=== PATIENT | male | born 1945 | race Caucasian/White ===

== ENCOUNTER 2024-04-24 10:33 | Outpatient (REF) | payer MEDICARE, SELFPAY ==
[2024-04-24 13:29] LABS: Basophils Absolute Auto 0.1 X10*3/uL (0.0-0.2); Basophils Percent Auto 1.2 % (0-2); Eosinophils Absolute Auto 0.1 X10*3/uL (0.0-0.4); Eosinophils Percent Auto 0.7 % (0-4); Hematocrit 48.7 % (42.0-52.0); Hemoglobin 16.2 g/dl (14.0-18.0); Imm Gran Abs Auto 0.02 X10*3/uL (0.00-0.03); Imm Gran Pct Auto 0.3 % (0.0-0.4); Lymphocytes Absolute Auto 1.5 X10*3/uL (1.2-4.9); Lymphocytes Percent Auto 21.2 % (20-40); MANUAL DIFF FLAG SCAN; Mean Corpuscular HGB Conc 33.3 g/dl (31.0-36.0); Mean Corpuscular Hemoglobin 33.5 pg (27.0-33.0); Mean Corpuscular Volume 100.6 fL (80.0-98.0); Monocytes Absolute Auto 0.6 X10*3/uL (0.1-1.2); Monocytes Percent Auto 7.7 % (2-11); PLT CLUMP 1; Red Blood Count 4.84 X10*6/uL (4.60-5.80); Red Cell Distribution Width 12.3 % (11.0-16.0); SCAN SMEAR FLAG 1
[2024-04-24 13:37] LABS: Estimated Average Glucose 100 mg/dL; Hemoglobin A1c % 5.1 % (<6.0)
[2024-04-24 13:49] LABS: Mean Platelet Volume 11.9 fL (9.4-12.4); White Blood Count 7.3 X10*3/uL (4.8-10.8)
[2024-04-24 13:51] LABS: Alanine Aminotransferase 19 U/L (0-40); Albumin Level 4.8 g/dL (3.5-5.0); Alkaline Phosphatase 94 U/L (39-117); Anion Gap 18 (12-20); Aspartate Amino Transferase 22 U/L (5-37); Bilirubin Total 0.7 mg/dL (0.0-1.0); Blood Urea Nitrogen 19 mg/dL (9-16); Calcium 10.7 mg/dL (8.4-10.2); Carbon Dioxide 23 mmol/L (22-29); Chloride 104 mmol/L (96-108); Cholesterol 138 mg/dL (<200); Estimated Glomerular Filt Rate 53; Glucose Random 90 mg/dL (60-115); HDL Cholesterol 48 mg/dL (>40); LDL Cholesterol Calculated 80 mg/dL (<100); Potassium 4.1 mmol/L (3.3-5.1); Sodium 141 mmol/L (135-145); Total Protein 7.7 g/dL (6.5-8.0); Triglycerides 52 mg/dL (<150)
[2024-04-24 13:55] LABS: Neutrophils Percent Auto 68.9 % (45-73)
[2024-04-24 13:56] LABS: Platelet Count 162 X10*3/uL (160-400); SLIDE REVIEW VERIFIED
[2024-04-24 14:07] LABS: Prostate Specific Antigen 10.88 ng/mL (<0.05-4.0)
== END 2024-04-24 10:34 | disposition home or self-care (01) ==
LOC: HO.MANLDS 10:33
PROVIDERS: Visit Provider Physician Assistant
DX: E78.5 Hyperlipidemia, unspecified (principal); R97.8 Other abnormal tumor markers; L97.929 Non-pressure chronic ulcer of unspecified part of left lower leg with unspecified severity; Z12.5 Encounter for screening for malignant neoplasm of prostate; Z13.1 Encounter for screening for diabetes mellitus
CPT/HCPCS: 36415; 80053; 80061; 83036; 84153; 85025

== ENCOUNTER 2024-05-02 10:02 | Outpatient (REF) | payer MEDICARE, SELFPAY ==
[2024-05-02 13:31] LABS: MANUAL DIFF FLAG NO
[2024-05-02 14:13] LABS: Basophils Absolute Auto 0.1 X10*3/uL (0.0-0.2); Basophils Percent Auto 1.6 % (0-2); Eosinophils Absolute Auto 0.1 X10*3/uL (0.0-0.4); Eosinophils Percent Auto 0.9 % (0-4); Hematocrit 47.8 % (42.0-52.0); Hemoglobin 15.9 g/dl (14.0-18.0); Imm Gran Abs Auto 0.02 X10*3/uL (0.00-0.03); Imm Gran Pct Auto 0.4 % (0.0-0.4); Lymphocytes Absolute Auto 1.4 X10*3/uL (1.2-4.9); Lymphocytes Percent Auto 25.6 % (20-40); Mean Corpuscular HGB Conc 33.3 g/dl (31.0-36.0); Mean Corpuscular Hemoglobin 33.1 pg (27.0-33.0); Mean Corpuscular Volume 99.6 fL (80.0-98.0); Mean Platelet Volume 10.6 fL (9.4-12.4); Monocytes Absolute Auto 0.4 X10*3/uL (0.1-1.2); Monocytes Percent Auto 7.4 % (2-11); Neutrophils Absolute Auto 3.6 x10*3/uL (2.0-8.3); Neutrophils Percent Auto 64.1 % (45-73); Platelet Count 213 X10*3/uL (160-400); Red Cell Distribution Width 12.2 % (11.0-16.0); White Blood Count 5.5 X10*3/uL (4.8-10.8)
[2024-05-02 14:47] LABS: Iron 109 mcg/dL (45-160); Percent Iron Saturation 49 % (15-50); Total Iron Binding Capacity 224 mcg/dL (228-428); Unsaturated Iron Binding 115 ug/dL
[2024-05-02 14:52] LABS: Folate 10.9 ng/mL (> or = 4.0); Vitamin B12 446 pg/mL (200-900)
[2024-05-02 14:55] LABS: Ferritin 263 ng/mL (20-250)
[2024-05-07 10:13] LABS: Methylmalonic Acid 131 nmol/L (69-390)
== END 2024-05-02 10:03 | disposition home or self-care (01) ==
LOC: HO.MANLDS 10:02
PROVIDERS: Visit Provider Physician Assistant
DX: D75.89 Other specified diseases of blood and blood-forming organs (principal); D75.839 Thrombocytosis, unspecified
CPT/HCPCS: 36415; 82607; 82728; 82746; 83540; 83921; 85025

== ENCOUNTER 2025-04-19 13:47 | Outpatient (AMB) | payer MEDICARE, SELFPAY ==
--- OUTSIDE RECORDS SUMMARY | 2024-10-16 07:22 | XMS_ITS | Continuity of Care Document ---
Author Name [facility] Organization [facility] Care Team Providers Care Supervisor Warping Department Name Role Phone [facility] Unavailable Unavailable Encounters Combined list of: 1) Encounters from [facility] facilities going backup to the last 18 months, not all [facility] inpatient encounters are included; 2) Encounters from the [facility] facilities going backup to 280 months. Location Location Details Encounter Type Encounter Number Reason For Visit Attending Provider ADM Date DC Date Status Disposition Source [facility] Outpatient Encounter [id number] 10/16 [facility]
--- NOTE | 2025-04-19 13:56 | A.OFFVIS_ITS ---
Intake Visit Reasons: inguinal hernia Intake Note: Pt states, I'm here for a hernia. no pain, swelling, getting bigger, had it for 20 years Allergies sulfamethoxazole (From Bactrim) Allergy (Severe, Verified 04/19/25 13:58) hives trimethoprim (From Bactrim) Allergy (Severe, Verified 04/19/25 13:58) hives Medication List - Last Reconciled 04/19/25 by Donovan Whatley RN aspirin 81 mg PO DAILY coenzyme Q10 (Ultra CoQ10) 75 mg PO DAILY magnesium 200 mg PO DAILY tamsulosin 0.4 mg PO DAILY HPI HPI inguinal hernia: Details: 79-year-old male referred for right inguinal hernia. He says that he has had this reducible mass on his right groin for more than 20 years. However, he says that this has been getting bigger has been causing more pain and discomfort. He is still able to reduce this by lying down and pushing this back in but he says that this ?pops out? more frequently now and causes more pain. He denies GI complaints He is still very active and still plays golf regularly. He says he has only medical problem is that he has BPH and is on tamsulosin. [facility] Medical History Reducible right inguinal hernia Surgical History History of tonsillectomy Review of Systems Const Denies chills and Denies fever(s) Card Denies chest pain, Denies dyspnea and Denies dyspnea on exertion Resp Denies cough, Denies dyspnea and Denies dyspnea on exertion GI Denies hematochezia and Denies change in bowel habits Denies hematuria and Denies difficulty urinating Musc Denies back pain and Denies limited range of motion Neuro Denies focal weakness and Denies convulsions Psych Denies depression and Denies mood swings Physical Exam Const General: comfortable and no acute distress Orientation/consciousness: patient oriented x3 Neck Neck: Yes no lymphadenopathy Resp Auscultation: clear to auscultation bilaterally Cardio Rhythm: regular rhythm GI Other: Large, reducible right inguinal hernia Palpation (GI): Soft to palpation, nontender and no guarding Neuro General: patient oriented x3 Assessment & Plan Assessment & Plan (1) Reducible right inguinal hernia: Code(s): K40.90 - Unilateral inguinal hernia, without obstruction or gangrene, not specified as recurrent Category: Medical Plan He has this large right inguinal hernia which is actually reducible. This has been becoming more and more uncomfortable to him. He now wants to proceed with repair. I explained to him the technique of repair of the right inguinal hernia with mesh. I reviewed the risks including but not limited to bleeding, infections, injury to other organs, poor healing, recurrence, as well as the benefits and alternatives. I also reviewed with him what to expect postoperatively. Coding Level of Care Code New Pt Level 3 (91617) Diagnoses Reducible right inguinal hernia K40.90
--- OUTSIDE RECORDS SUMMARY | 2025-04-19 14:30 | XMS_ITS | Data Portability ---
Author Organization [facility], Telehealth Patient Home Address [address] [place] [address] Assessment Encounter Date Assessment Date Assessment LastModified by Organization Details LastModified Time 10/27/2021 10/27/2021 [id number] [place] [id number] (AFFILIATE MARKETING COORDINATOR) : MDM LOW MUST MEET 2 OF 3 ELEMENTS: PROBLEMS, DATA OR RISK ELEMENT 1: PROBLEMS ADDRESSED (LOW): 2 OR MORE SELF-LIMITED OR MINOR PROBLEMS OR 1 STABLE CHRONIC ILLNESS OR 1 ACUTE UNCOMPLICATED ILLNESS OR INJURY ELEMENT 2: DATA TO BE REVISED AND ANALYZED (LOW) MUST MEET 1 OF 2 CATEGORIES: CATEGORY 1. REVIEW OF PRIOR EXTERNAL NOTES/RESULTS, ORDERING OF TEST(S) CATEGORY 2. ASSESSMENT REQUIRING INDEPENDENT HISTORIAN(S) INCLUDE WHO THE HISTORIAN IS AND RELATION TO PT AND WHY PT IS UNABLE TO GIVE COMPLETE HISTORY ELEMENT 3: RISK (LOW) RISK OF COMPLICATIONS AND/OR MORBIDITY OR MORTALITY OF PATIENT MANAGEMENT PROVIDER MUST THOROUGHLY DOCUMENT ALL OF THE ELEMENTS COVERED PROVIDER MUST THOROUGHLY DOCUMENT EACH ELEMENT THAT IS COVERED Not available 10/27/2021 14:01:33 01/29/2025 01/29/2025 [id number] [place] [id number] (AFFILIATE MARKETING COORDINATOR) MDM HIGH MUST MEET 2 OUT OF 3 ELEMENTS: PROBLEMS, DATA OR RISK ELEMENT 1: PROBLEMS 1 OR MORE CHRONIC ILLNESS W/SEVERE EXACERBATION, PROGRESSION MAY REQUIRE HOSPITAL LEVEL CARE OR 1 ACUTE OR CHRONIC ILLNESS OR INJURY THAT POSES A THREAT TO LIFE OR BODILY FUNCTION ELEMENT 2: DATA: MUST MEET 2 OF 3 CATEGORIES CATEGORY 1 REVIEW OF PRIOR EXTERNAL NOTES REVIEW OF THE RESULTS ORDERING OF EACH TEST ASSESSMENT REQUIRING INDEPENDENT HISTORIAN(S) CATEGORY 2: INDEPENDENT INTERPRETATION OF TESTS BY ANOTHER PROVIDER/SPECIALI ST CATEGORY 3: DISCUSSION OF MGT OR TEST INTERPRETATION W/EXTERNAL PHYSICIAN/SPECIAL IST ELEMENT 3: RISK HIGH RISK OF MORBIDITY FROM ADDITIONAL DIAGNOSTIC TESTING OR TREATMENT PROVIDER MUST THOROUGHLY DOCUMENT EACH ELEMENT THAT IS COVERED The patient presented to their appointment today for multiple concerns requiring moderate to high-level decision making and took over 40-45 minutes for an adequate and appropriate history, exam, assessment and treatment plan. This appointment was done with an established patient. Not available 01/29/2025 15:10:59 Plan of Treatment Reminders Order Date Submit Date Provider Last Modified By Organization Details Last Modified Time Details Appointments None recorded. Lab CMP, serum or plasma 2024 025 [facility], [address] [place] [address], [id number], 5 15:10:33 lipid panel, blood 2024 025 [facility], [address] [place] [address], [address], 5 15:10:33 CBC w/ auto diff 2024 025 [facility], [address] [place] [address], [address], 5 15:10:33 PSA, serum or plasma 2024 025 [facility], [address] [place] [address], [address], 5 15:10:33 PSA, serum or plasma 2023 024 [facility], [address] [place] [address], [address], 4 11:45:28 lipid panel, serum 2023 024 [facility], [address] [place] [address], [address], 4 11:45:28 CMP, serum or plasma 2023 024 [facility], [address] [place] [address], [address], 4 11:45:27 CBC w/ auto diff 2023 024 [facility], [address] [place] [address], [place], [address], 4 11:45:29 hemoglobin A1c, QN, blood 2023 024 [facility], [address] [place] [address], [place], [address], 4 11:45:28 culture, wound 2023 024 [facility], [address] [place] [address], [place], [address], 4 10:45:04 PSA, serum or plasma 2021 022 [facility], [place], [address], 2 13:50:23 CMP, serum or plasma 2021 022 [facility], [place], [address], 2 13:49:31 lipid panel, serum 2021 022 [facility], [place], [address], 2 14:05:12 Referral general surgeon referral 2024 025 raymundo Amor MD, [address] [place] [address] [place], [address], 5 08:44:39 Procedures None recorded. Surgeries None recorded. Imaging XR, lumbosacra l spine, 2 or 3 view 2019 020 [facility], [address] [place] [address], [place], [address], 0 09:16:47 Medication Orders doxycyclin e hyclate 100 mg capsule 2024 025 [facility], [address] [place] [address], [address], 5 15:05:14 tamsulosin 0.4 mg capsule [address] [facility] [address] [facility], [address] [place] [address], [address], 5 15:08:54 Bactrim DS 800 mg-160 mg tablet 2023 024 [facility], [address] [place] [address], [address], 4 14:59:30 gabapentin 300 mg capsule [address] [facility], [address] [place] [address], [address], 0 10:17:49 naproxen 500 mg tablet [address] [facility], [address] [place] [address], [address], 0 10:17:54 Patient TargetsNo targets recorded. Patient Instructions Encounter Date Encounter Id Patient Instructions Last Modified By Organization Details Last Modified Time 10/27/2021 [id number] transient ischemic attack: care instructions Not available 10/27/2021 13:59:40 01/29/2025 [id number] inguinal hernia: care instructions Not available 01/29/2025 15:03:40 Reason for Referral General Surgeon Referral for Right inguinal hernia right inguinal hernia Referring Physician: Kenneth Blanton, Internal Medicine, Encounter Date: 01/29/2025 Results Created Date Observation Date Name Description Value Unit Range Abnormal Flag Note LastModifiedBy Organization Detail LastModifiedTime 01/05/20 20 01/01/2020 XR, lumbo sacra l spine , 2 or 3 view No observ ation record ed. [facility] [address] [place], [address], 01/05/2020 11:42:43 Result Notes None recorded. Problems Name Problem SNOMED Code Status Onset Date Resolution Date Notes Provider Name and Address Organization Details Recorded Time Transient cerebral ischemia 852852493 Active 2018 Kenneth Blanton DO [address] [place] [address], [address], [facility] 9 09:34:12 Prostate specific antigen outside reference range 494562766 Active 2018 Kenneth Blanton DO [address] [place] [address], [address], [facility] 9 09:34:27 Celluliti s of lower leg 997283932 Active 2023 DUSTIN CHÁVEZ [address] [place] [address], [address], [facility] 4 14:57:00 Hyperlipi demia 69705135 Active 2023 DUSTIN CHÁVEZ [address] [place] [address], [address], [facility] 4 14:58:20 Ulcer of lower extremity 29476336 Active 2023 DUSTIN CHÁVEZ [address] [place] [address], [address], [facility] 4 14:58:48 Ulcer of lower extremity 25711988 Active 2023 DUSTIN CHÁVEZ [address] [place] [address], [address], [facility] 4 14:59:27 Macrocyto sis 749285929 Active 2023 DUSTIN CHÁVEZ [address] [place] [address], [address], [facility] 4 16:30:38 Thrombocy tosis 8617699 Active 2023 DUSTIN CHÁVEZ [address] [place] [address], [address], [facility] 4 16:31:14 Drug therapy finding 374766838 Active 2024 Kenneth Blanton, [address], [address], [facility] 5 14:58:16 Right inguinal hernia 275000661 Active 2024 Kenneth Blanton [address], [address], [facility] 5 15:02:49 Nocturia due to benign prostatic hypertrop hy 147083590727 1 Active 2024 Kenneth Blanton [address], [address], [facility] 5 15:08:11 Chronic constipat ion 887579865 Active 2024 Kenneth Blanton [address], [address], [facility] 5 15:09:08 Problem Notes None recorded. Procedures Surgical History Date Name Laterality Status Provider Name and Address Organization Details Recorded Time 4 WOUND CARE completed DUSTIN CHÁVEZ [address] [place] [address], [address], [facility] 04/21/2024 15:04:23 Imaging Results None recorded. Procedure Notes None recorded. Medical Equipment None Reported. Allergies Allergen ID Allergen Name Allergen Category Reaction Reaction Severity Criticality Documentation Date Start Date Code Code System Note Provider Name and Address Organization Details Recorded Time 8699 Substance with sulfonami de structure and antibacte rial mechanism of action (substanc e) medicatio n hives Not available Not available 10/30/2024 36310 8003 SNOMED Lazaro saavedra [facility] 5 11:55:15 8700 Bactrim medicatio n hives Not available Not available 10/30/2024 60357 9 RxNorm Lazaro saavedra [facility] 5 11:55:26 8953 atorvasta tin medicatio n Not available Not available unabletoasse 01/29/2025 17842 RxNorm edior tiki Cooper JesusBrent Blanton, [address] [place], [address], [facility] 5 14:59:44 Medications Name Sig Start Date Stop Date Status Note LastModified by Organization Details LastModified Time atorvastati n 80 mg tablet Take 1 tablet every day by oral route. 03/17 completed Not Available Not Available Not Available doxycycline hyclate 100 mg capsule TAKE 1 CAPSULE BY MOUTH TWICE DAILY FOR 10 DAYS active Not Available Not Available No t Available atorvastati n 10 mg tablet TAKE 1 TABLET BY MOUTH ONCE DAILY active Not Available Not Available No t Available aspirin 325 mg tablet Take 1 tablet every day by oral route. 03/17 completed Not Available Not Available Not Available ciprofloxac in 500 mg tablet Take 1 tablet every 12 hours by oral route for 10 days. 03/17 completed Not Available Not Available Not Available sulfamethox azole 800 mg-trimetho prim 160 mg tablet TAKE 1 TABLET BY MOUTH EVERY 12 HOURS FOR 7 DAYS active Not Available Not Available No t Available tamsulosin 0.4 mg capsule TAKE 1 CAPSULE BY MOUTH ONCE DAILY active Not Available Not Available No t Available gabapentin 300 mg capsule TAKE 1 CAPSULE BY MOUTH ONCE DAILY AT BEDTIME 10/02 completed Not Available Not Available Not Available SB Low Dose ASA EC 81 mg tablet,elvin yed release Take 1 tablet every day by oral route. active Not Available Not Available No t Available mupirocin 2 % topical ointment APPLY OINTMENT TOPICALLY TO SURGICAL SITE TWICE DAILY FOR 14 DAYS active Not Available Not Available No t Available naproxen 500 mg tablet TAKE 1 TABLET BY MOUTH TWICE DAILY 10/02 completed Not Available Not Available Not Available Vitals Date Recorded Body height Body mass index (BMI) Body weight Heart rate Oxygen saturation Oxygen saturation in Arterial blood by Pulse oximetry Systolic And Diastolic Provider Name and Address Organization Details Last Updated DateTime 0 177.17 cm 22.7 kg/m2 71450 g 84 /min 99 % 99 % 130/74 mm[Hg] DUSTIN CHÁVEZ [address] [place], [address] 0 10:43:49 Date Recorded Body height Body mass index (BMI) Body weight Heart rate Oxygen saturation Oxygen saturation in Arterial blood by Pulse oximetry Systolic And Diastolic Provider Name and Address Organization Details Last Updated DateTime 5 177.8 cm 22.5 kg/m2 97492 g 80 /min 98 % 98 % 140/80 mm[Hg] Neisha Cardonamond [facility] 5 14:40:30 Date Recorded Body height Body mass index (BMI) Body weight Heart rate Oxygen saturation Oxygen saturation in Arterial blood by Pulse oximetry Systolic And Diastolic Provider Name and Address Organization Details Last Updated DateTime 4 177.8 cm 22.5 kg/m2 52878 g 66 /min 98 % 98 % 120/80 mm[Hg] Lazaro [facility] 4 14:42:01 Social History Question Answer Notes LastModified by Organizat ion Details LastModified Time Tobacco Smoking Status Never Smoker [facility] 01/10/2019 11:39:14 What Was The Date Of Your Most Recent Tobacco Screening? 01/29/2025 [email or web address] Information not available 01/29/2025 Sex: Unknown Functional Status None recorded. Mental Status None recorded. Family History Nothing Reported. Medical History No medical history recorded. 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 and is now manifestin g symptoms with a left visual field cut ct and mri will be forwarded in ER report Kenneth Blanton [facility] [address] [facility],[place] [address] 02/17/2019 13:19:52 02/17/2019 14:46:26 Benign prostatic hyperplasia 160248345 N40.1 [id number] Kenneth Blanton DO [facility] [address] [facility],[place] [address] 03/17/2019 09:06:38 03/17/2019 11:21:10 Transient cerebral ischemia 759072817 G45.9 will cont with asa at this time neuro reportedly stated no need for procedure await full report cont statin but neuro lowered the dose will call pt with approp dose when we receive the actual consult report Prostate s pecific antigen outside reference range 164696006 R97.8 will be seeing urology in the next week or so psa is still elevated at 9.8 will send all labto urol today [id number] Kenneth Blanton [facility] [address] [facility], [place] [address] 05/08/2019 13:59:13 05/08/2019 16:08:04 Prostate specific antigen above reference range 773226597 R97.20 will try to order an mri and use this as pt is extremely reluctant to get a bx [id number] Kenneth Blanton DO [facility] [address], [place] [address] 07/03/2019 13:51:50 07/03/2019 16:29:18 Prostate specific antigen outside reference range 009950830 R97.8 will refer urology for a new opinion will send all lab to urol today Left inguinal hernia 236 191895 K40.90 will address after prostate stuff done [id number] Kenneth Blanton [facility] [address] [facility],[place] [address] 12/29/2019 10:36:34 12/29/2019 14:45:28 Right side sciatica 0240108511 56708 M54.31 the pt had a prior hx of sciatica due to chronic low back pain will get imaging done Meralgia p aresthetica of right leg 0844750995 82705 G57.11 constant numbness for the past day with right upper thigh will treat and image [id number] Kenneth Blanton [facility] [address] [facility],[place] [address] 10/02/2020 09:46:47 10/02/2020 10:48:58 Transient cerebral ischemia 059093401 G45.9 will cont with asa at this time neuro reportedly stated no need for procedure await full report cont statin but vascular lowered the dose will call pt with approp dose when we receive the actual consult report Prostate s pecific antigen outside reference range 544461747 R97.8 psa is higher but remains stable at 9.2 was 10.6 followe d by urology [id number] Kenneth Blanton [facility] [address] [facility],[place] [address] 10/27/2021 08:17:16 10/28/2021 15:28:34 Transient cerebral ischemia 898124657 G45.9 will cont with asa at this time neuro reportedly stated no need for procedure await full report cont statin but vascular lowered the dose will call pt with approp dose when we receive the actual consult report Prostate s pecific antigen outside reference range 551582372 R97.8 psa is higher but remains stable at 9.2 was 10.6 followe d by urology [id number] [facility] [address] [facility],[place] [address] 04/21/2024 14:28:14 04/21/2024 16:32:33 Depression screening 221958359 Z13.31 negative Cellulitis of lower leg 464246193 L03.116 start on bactrim for the next 7 days Hyperlipidemia 97543511 E78.5 set up with repeat blood work Prostate s pecific antigen outside reference range 125112301 R97.8 needs recheck Ulcer of l ower extremity 65598874 L97.929 no specific cause for the ulcer, will check a1c r/o poorly controlled new onset diabetes [id number] Kenneth Blanton [facility] [address] [facility],[place] [address] 01/29/2025 14:31:24 01/29/2025 15:07:13 Transient cerebral ischemia 316312311 G45.9 has been stable will cont with asa at this time neuro reportedly stated no need for procedure await full report cont statin but vascular lowered the dose will call pt with approp dose when we receive the actual consult report Hyperlipidemia 94954463 E78.5 now having signif effects from atorvastat including memory Depression screening 171 061822 Z13.31 neg Drug therapy finding 309 802597 T88.7XXA stop the atorvastat in will see how he does Right inguinal hernia 23 1842660 K40.90 will refer to surg Infection of tick bite 620939863 W57.XXXA Nocturia d ue to benign prostatic hypertrophy 2203605022 101 N40.1 R35.1 Chronic constipation 236 571376 K59.09 long discussion will have him take psyillium husk and water and see how he does Health Concerns Section Related Observation LastModified by Organization Detai ls LastModified Time None Recorded Concern Status LastModified by Organization Details LastModified Time None Recorded Advance Directives Directive None Recorded Payers Insurance Date Sequence Insurance Name Policy Number Policy [place] Covered Member ID [place] Member ID Guarantor Name 02/21/2025 1 [facility] [id number] Morgan Gallegos [id number] Morgan Gallegos 01/29/2025 [facility] (MEDICARE REPLACEMENT/A DVANTAGE - PPO) [id number] Morgan Gallegos [id number] Morgan Gallegos Notes Date Note Type Note Provider Name and Address Organization Details Recorded Time 12/29/19 20 text/htm l c/o right upper thigh numbness started yesterday morning, the patient states that he had a constant state of numbness in his right thigh the patient reports have an right inguinal hernia he also has a hx of chronic back pain which has been flaring up for the past couple of days he has pain with walking, twisting and bending and causes pain in the right leg states he was laying on his back which caused pain into right leg Has been taking APAP/ibuprofen (not sure which one) and aspirin for the pain but has found no relief with either medication the patient has tried heating pad which he states he is getting relief with no chest pain, no sob , no fever, no fatigue, no cough DUSTIN CHÁVEZ [address] [facility], [place], [address], [facility] 12/29/2019 11:24:48 10/02/20 20 text/htm l patient is evaluated via tele/video assessment per patient consent during current pandemic states has been feeling well some tingling from his back states no cp no sob no other episodes of neuro sx neurologist states 9 mo still taking the his usual meds Kenneth Blanton DO [address] [place], [address], [facility] 10/02/2020 10:26:31 10/27/19 22 text/htm l patient is evaluated via tele/video assessment per patient consentduring current pandemichere for ольга states that he is doing ok atorvastatin is not bothering him but we will Kenneth Blanton DO [address] [place], [address], [facility] 10/27/2021 14:02:48 04/21/20 24 text/htm l c/o ulcer patient noticed a spot on his leg, started putting abx ointment on it but it started to progress, about a stage 1 ulcer of the lower left extermitysurrounding redness and warm will start on abx and send out culture as well needs repeat bw for the year otherwise no other questions today DUSTIN CHÁVEZ [address] [place], [address], [facility] 04/21/2024 15:05:27 01/30/20 25 text/htm l Care Management - HyperlipidemiaReported bypatient.Control:usually well controlled; improving; at goal Complications:no coronary artery disease; no heart attack; no cardiovascular disease; no pancreatitis; no stroke here for ольга will be needing a hernia operation but wants to wait until fall after golfalso wants off the atorvastat said he is losing his memory and having a lot of aches etcalso got a tick bite last week and is now swollen and redon lower back Kenneth Blanton DO [address] [place], [address], [facility] 01/29/2025 15:12:06
--- OUTSIDE RECORDS SUMMARY | 2025-04-19 14:30 | XMS_ITS | Clinical Summary ---
Author Organization [employer] Address [address] [facility] [address] [place] [address] Care Team Providers Care Obstetrics And Gynecology Professor Name Role Phone Unavailable Primary Care Provider Unavailabl e Allergies No known active allergies Medications atorvastatin (Lipitor) 10 MG tablet Take 10 mg by mouth in the morning. 02/12/2023 Active saccharomyces boulardii (Florastor) 250 MG capsule Take 250 mg by mouth. Active Nutritional Supplements (PROSTATE PO) Take by mouth. Active aspirin 81 MG EC tablet Take 81 mg by mouth in the morning. Active Active Problems Problem Noted Date Diagnosed Date Transient ischemic attack 03/17/2019 Social History Tobacco Use Types Packs/Day Years Used Date Smoking Tobacco: Never Tobacco Cessation:Counseling Given: Not Answered Sex and Gender Information Value Date Recorded Sex Assigned at Male 04/14/2023 1:31 PM EDT Legal Sex Male 8:35 PM EDT Gender Identity Male 04/14/2023 1:31 PM EDT Sexual Orientation Straight 04/14/2023 1: 31 PM EDT Last Filed Vital Signs Vital Sign Reading Time Taken Comments Blood Pressure 120/72 04/14/2023 2:54 PM EDT Pulse - - Temperature 36.2 C (97.2 F) 04/14/2023 2:54 PM EDT Respiratory Rate - - Oxygen Saturation - - Inhaled Oxygen Concentration - - Weight - - Height - - Body Mass Index - - Plan of Treatment Health Maintenance Due Date Last Done Comments Depression Screening 1945 SDOH Screening 1946 Alcohol/Substance Use Screening 1958 Tobacco Screening 1958 Hepatitis C Screening 1964 DTaP/Tdap/Td Vaccines (1 - Tdap) 1965 Pneumococcal Vaccine: 50+ Ye ars (1 of 1 - PCV) 1996 Zoster Vaccines (1 of 2) 1996 RSV Patients and Pa tients Aged 60 years or older (1 - 1-dose 75+ series) 2021 COVID-19 Vaccine (1 - 2023-2 5 season) 2024 Influenza Vaccine (#1) 2025 Lipid Panel 10/31/2026 10/31/2021 HIB Vaccines Aged Out No longer eligi ble based on patient's age to complete this topic HPV Vaccines Aged Out No longer eligi ble based on patient's age to complete this topic Hepatitis A Vaccines Aged Out No long er eligible based on patient's age to complete this topic Hepatitis B Vaccines Aged Out No long er eligible based on patient's age to complete this topic IPV Vaccines Aged Out No longer eligi ble based on patient's age to complete this topic Meningococcal B Vaccine Aged Out No l onger eligible based on patient's age to complete this topic Meningococcal Vaccine Aged Out No ad shsahi eligible based on patient's age to complete this topic RSV under 20 months Aged Out No longe r eligible based on patient's age to complete this topic Rotavirus Vaccines Aged Out No longer eligible based on patient's age to complete this topic Insurance [facility] MEDICARE REPLACEMENT
== END 2025-04-19 14:31 | disposition home or self-care (01) ==
LOC: HO.HGS 13:48
PROVIDERS: PCP Internal Medicine; Visit Provider Surgery
DX: K40.90 Unilateral inguinal hernia, without obstruction or gangrene, not specified as recurrent (principal)
CPT/HCPCS: 99203

== ENCOUNTER → 2025-04-19 13:47 | Outpatient (BNVA) | payer MEDICARE, SELFPAY | PROVIDERS: PCP Internal Medicine; Visit Provider Surgery | DX: K40.90 Unilateral inguinal hernia, without obstruction or gangrene, not specified as recurrent (principal) | CPT/HCPCS: 99202 ==

== ENCOUNTER 2025-05-17 07:05 | Day surgery (SDC) | payer MEDICARE, SELFPAY ==
--- OUTSIDE RECORDS SUMMARY | 2024-10-16 07:22 | XMS_ITS | Continuity of Care Document ---
Author Name [facility] Organization [facility] Care Team Providers Care Bricklayer Helper Name Role Phone [facility] Unavailable Unavailable Encounters [...] ADM Date DC Date Status Disposition Source [facility] Outpatient Encounter [id number] 10/16 [facility]
--- OUTSIDE RECORDS SUMMARY | 2025-04-24 16:41 | XMS_ITS | Data Portability ---
Author Organization [facility], Telehealth Patient Home Address [address] [place] [address] Assessment Encounter Date Assessment Date Assessment LastModified by Organization Details LastModified Time 10/27/2021 10/27/2021 [id number] [place] [id number] (CUSTOMER RESOURCE SPECIALIST) : MDM LOW MUST MEET 2 OF [...] COVERED Not available 10/27/2021 14:01:33 01/29/2025 01/29/2025 [id number] [place] [id number] (CUSTOMER RESOURCE SPECIALIST) MDM HIGH MUST MEET 2 OUT OF [...] Lab CMP, serum or plasma 2024 025 [facility], [address] [place] [address], [address], 5 15:10:33 lipid panel, blood 2024 025 [facility], [address] [place] [address], [address], 5 15:10:33 CBC w/ auto diff 2024 025 [facility], [address] [place] [address], [address], 5 15:10:33 PSA, serum or plasma 2024 025 [facility], [address] [place] [address], [address], 5 15:10:33 PSA, serum or plasma 2023 024 [facility], [address] [place] [address], [address], 4 11:45:28 lipid panel, serum 2023 024 [facility], [address] [place] [address], [address], 4 11:45:28 CMP, serum or plasma 2023 024 [facility], [address] [place] [address], [address], 4 11:45:27 CBC w/ auto diff 2023 024 [facility], [address] [place] [address], [place], [address], 4 11:45:29 hemoglobin A1c, QN, blood 2023 024 [facility], [address] [place] [address], [place], [address], 4 11:45:28 culture, wound 2023 024 [facility], [address] [place] [address], [place], [address], 4 10:45:04 PSA, serum or plasma 2021 022 [facility], [place], [address], 2 13:50:23 CMP, serum or plasma 2021 022 [facility], [place], [address], 2 13:49:31 lipid panel, serum 2021 022 [facility], [place], [address], 2 14:05:12 Referral general surgeon referral 2024 025 raymundo Amor MD, [address] [place] [address] [place], [address], 5 08:44:39 Procedures None recorded. Surgeries None recorded. Imaging XR, lumbosacra l spine, 2 or 3 view 2019 020 [facility], [address] [place] [address], [place], [address], 0 09:16:47 Medication Orders doxycyclin e hyclate 100 mg capsule 2024 025 [facility], [address] [place] [address], [address], 5 15:05:14 tamsulosin 0.4 mg capsule [address] [facility] [address] [facility], [address] [place] [address], [address], 5 15:08:54 Bactrim DS 800 mg-160 mg tablet 2023 024 [facility], [address] [place] [address], [address], 4 14:59:30 gabapentin 300 mg capsule [address] [facility] [address] [facility], [address] [place] [address], [address], 0 10:17:49 naproxen 500 mg tablet [address] [facility] [address] [facility], [address] [place] [address], [address], 0 10:17:54 Patient TargetsNo targets recorded. Patient Instructions Encounter Date Encounter Id Patient Instructions Last Modified By Organization Details Last Modified Time 10/27/2021 [id number] transient ischemic attack: care instructions Not available 10/27/2021 13:59:40 01/29/2025 [id number] inguinal hernia: care instructions Not available 01/29/2025 [...] 3 view No observ ation record ed[facility] [address] [place], [address], 01/05/2020 11:42:43 Result Notes None recorded. Problems Name Problem SNOMED Code Status Onset Date Resolution Date Notes Provider Name and Address Organization Details Recorded Time Transient cerebral ischemia 925509094 Active 2018 Kenneth Blanton DO [address] [place] [address], [address], [facility] 9 09:34:12 Prostate specific antigen outside reference range 916003016 Active 2018 Kenneth Blanton DO [address] [place] [address], [address], [facility] 9 09:34:27 Celluliti s of lower leg 355666177 Active 2023 DUSTIN CHÁVEZ [address] [place] [address], [address], [facility] 4 14:57:00 Hyperlipi demia 26811351 Active 2023 DUSTIN CHÁVEZ [address] [place] [address], [address], [facility] 4 14:58:20 Ulcer of lower extremity 85109971 Active 2023 DUSTIN CHÁVEZ [address] [place] [address], [address], [facility] 4 14:58:48 Ulcer of lower extremity 56595655 Active 2023 DUSTIN CHÁVEZ [address] [place] [address], [address], [facility] 4 14:59:27 Macrocyto sis 608395163 Active 2023 DUSTIN CHÁVEZ [address] [place] [address], [address], [facility] 4 16:30:38 Thrombocy tosis 3103154 Active 2023 DUSTIN CHÁVEZ [address] [place] [address], [address], [facility] 4 16:31:14 Drug therapy finding 643377346 Active 2024 Kenneth Blanton, [address], [address], [facility] 5 14:58:16 Right inguinal hernia 373788582 Active 2024 Kenneth Blanton [address], [address], [facility] 5 15:02:49 Nocturia due to benign prostatic hypertrop hy 396921264562 1 Active 2024 Kenneth Blanton [address], [address], [facility] 5 15:08:11 Chronic constipat ion 747472879 Active 2024 Kenneth Blanton [address], [address], [facility] 5 15:09:08 Problem Notes None recorded. Procedures Surgical History Date Name Laterality Status Provider Name and Address Organization Details Recorded Time 4 WOUND CARE completed DUSTIN CHÁVEZ [address] [place] [address], [address], [facility] 04/21/2024 15:04:23 Imaging Results None recorded. Procedure Notes None recorded. Medical Equipment None Reported. Allergies Allergen ID Allergen Name Allergen Category Reaction Reaction Severity Criticality Documentation Date Start Date Code Code System Note Provider Name and Address Organization Details Recorded Time 8699 Substance with sulfonami de structure and antibacte rial mechanism of action (substanc e) medicatio n hives Not available Not available 10/30/2024 16379 8003 SNOMED Lazaro saavedra [facility] 5 11:55:15 8700 Bactrim medicatio n hives Not available Not available 10/30/2024 88005 9 RxNorm Lazaro saavedra [facility] 5 11:55:26 8953 atorvasta tin medicatio n Not available Not available unabletoasse 01/29/2025 16777 RxNorm edior tiki Cooper JesusBrent Blanton, [address] [place], [address], [facility] 5 14:59:44 Medications [...] Updated DateTime 0 177.17 cm 22.7 kg/m2 17870 g 84 /min 99 % 99 % 130/74 mm[Hg] DUSTIN CHÁVEZ [address] [place], [address] 0 10:43:49 Date Recorded Body height Body mass index (BMI) Body weight Heart rate Oxygen saturation Oxygen saturation in Arterial blood by Pulse oximetry Systolic And Diastolic Provider Name and Address Organization Details Last Updated DateTime 5 177.8 cm 22.5 kg/m2 14594 g 80 /min 98 % 98 % 140/80 mm[Hg] Neisha Cardonamond [facility] 5 14:40:30 Date Recorded Body height Body mass index (BMI) Body weight Heart rate Oxygen saturation Oxygen saturation in Arterial blood by Pulse oximetry Systolic And Diastolic Provider Name and Address Organization Details Last Updated DateTime 4 177.8 cm 22.5 kg/m2 35481 g 66 /min 98 % 98 % 120/80 mm[Hg] Lazaro Baldwin [facility] 4 14:42:01 Social History Question Answer Notes LastModified by Organizat ion Details LastModified Time Tobacco Smoking Status Never [facility]oker [facility] 01/10/2019 11:39:14 What Was The Date Of Your Most Recent Tobacco Screening? 01/29/2025 Information not available 01/29/2025 Sex: Unknown Functional Status None recorded. Mental Status None recorded. Family History Nothing Reported. Medical History No medical history recorded. Past Encounters Encounter ID Performer Location Encounter Start Date Encounter Closed Date Diagnosis/Indication Diagnosis SNOMED-CT Code Diagnosis ICD10 Code Diagnosis Note [id number] 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 [address] [facility],[place] [address] 02/17/2019 13:19:52 02/17/2019 14:46:26 Benign prostatic hyperplasia 463877537 N40.1 [id number] Kenneth Blanton DO [facility] [address] [facility],[place] [address] 03/17/2019 09:06:38 03/17/2019 11:21:10 Transient cerebral ischemia 020700008 G45.9 will cont with asa at this time neuro reportedly stated no need for procedure await full report cont statin but neuro lowered the dose will call pt with approp dose when we receive the actual consult report Prostate s pecific antigen outside reference range 816119464 R97.8 will be seeing urology in the next week or so psa is still elevated at 9.8 will send all labto urol today [id number] [facility] [address] [facility], [place] [address] 05/08/2019 13:59:13 05/08/2019 16:08:04 Prostate specific antigen above reference range 905864064 R97.20 will try to order an mri and use this as [place] bx [id number] Kenneth Blanton DO [facility] Internal [address] [address] 07/03/2019 13:51:50 07/03/2019 16:29:18 Prostate specific antigen outside reference range 252293287 R97.8 will refer urology for a new opinion will send all lab to urol today Left inguinal hernia 236 969179 K40.90 will address after prostate stuff done [id number] [facility] [address] [facility],[place] [address] 12/29/2019 10:36:34 12/29/2019 14:45:28 Right side sciatica 7932884544 32785 M54.31 the pt had a prior hx of sciatica due to chronic low back pain will get imaging done Meralgia p aresthetica of right leg 1675278184 40043 G57.11 constant numbness for the past day with right upper thigh will treat and image [id number] [facility] [address] [facility],[place] [address] 10/02/2020 09:46:47 10/02/2020 10:48:58 Transient cerebral ischemia 879193047 G45.9 will cont with asa at this time neuro reportedly stated no need for procedure await full report cont statin but vascular lowered the dose will call pt with approp dose when we receive the actual consult report Prostate s pecific antigen outside reference range 436170349 R97.8 psa is higher but remains stable at 9.2 was 10.6 followe d by urology [id number] [facility] [address] [facility],[place] [address] 10/27/2021 08:17:16 10/28/2021 15:28:34 Transient cerebral ischemia 569791284 G45.9 will cont with asa at this time neuro reportedly stated no need for procedure await full report cont statin but vascular lowered the dose will call pt with approp dose when we receive the actual consult report Prostate s pecific antigen outside reference range 897203160 R97.8 psa is higher but remains stable at 9.2 was 10.6 followe d by urology [id number] [facility] [address] [facility],[place] [address] 04/21/2024 14:28:14 04/21/2024 16:32:33 Depression screening 092927858 Z13.31 negative Cellulitis of lower leg 692902130 L03.116 start on bactrim for the next 7 days Hyperlipidemia 14035911 E78.5 set up with repeat blood work Prostate s pecific antigen outside reference range 890886801 R97.8 needs recheck Ulcer of l ower extremity 53347104 L97.929 no specific cause for the ulcer, will check a1c r/o poorly controlled new onset diabetes [id number] Kenneth Blanton [facility] [address] [facility],[place] [address] 01/29/2025 14:31:24 01/29/2025 15:07:13 Transient cerebral ischemia 546588498 G45.9 has been stable will cont with asa at this time neuro reportedly stated no need for procedure await full report cont statin but vascular lowered the dose will call pt with approp dose when we receive the actual consult report Hyperlipidemia 51863347 E78.5 now having signif effects from atorvastat including memory Depression screening 171 318857 Z13.31 neg Drug therapy finding 309 601633 T88.7XXA stop the atorvastat in will see how he does Right inguinal hernia 23 4780000 K40.90 will refer to surg Infection of tick bite 424061108 W57.XXXA Nocturia d ue to benign prostatic hypertrophy 5885900254 101 N40.1 R35.1 Chronic constipation 236 272169 K59.09 long discussion will have him take [...] [place] Member ID Guarantor Name 02/21/2025 1 [facility] [id number] Morgan Gallegos [id number] Morgan Gallegos 01/29/2025 [facility] (MEDICARE REPLACEMENT/A DVANTAGE - PPO) [id number] Morgan Gallegos [id number] Morgan Gallegos Notes Date Note Type Note [...] no fatigue, no cough DUSTIN CHÁVEZ [address] [facility], [place], [address], [facility] 12/29/2019 11:24:48 10/02/20 20 text/htm l patient is evaluated via tele/video assessment per patient consent during current pandemic states has been feeling well some tingling from his back states no cp no sob no other episodes of neuro sx neurologist states 9 mo still taking the his usual meds Kenneth Blanton DO [address] [place], [address], [facility] 10/02/2020 10:26:31 10/27/19 22 text/htm l patient is evaluated via tele/video assessment per patient consentduring current pandemichere for ольга states that he is doing ok atorvastatin is not bothering him but we will Kenneth Blanton DO [address] [place], [address], [facility] 10/27/2021 14:02:48 04/21/20 [...] no other questions today DUSTIN CHÁVEZ [address] [place], [address], [facility] 04/21/2024 15:05:27 01/30/20 25 text/htm l Care [...] redon lower back Kenneth Blanton DO [address] [place], [address], [facility] 01/29/2025 15:12:06
--- OUTSIDE RECORDS SUMMARY | 2025-04-24 16:41 | XMS_ITS | Clinical Summary ---
Author Organization [facility] Address [address] [place] [address] Phone Care Team Providers Care Tailing Hand Name Role Phone Tonjamicaela Kenneth Jesus DOHERTY Primary Care Provider [phone] Social History Tobacco Use Types Packs/Day Years Used Date Smoking Tobacco: Never Assessed Education Answer Date Recorded Are you interested in more education? Not on kamila e 01/29/2023 Are you concerned about learning? Not on file 01/29/2023 No 01/29/2023 No 01/29/2023 Digital Access Answer Date Recorded No 03/02/2023 No 03/02/2023 Reliable internet access at home? Not on file 03/02/2023 Device with a working camera? Not on file Sex and Gender Information Value Date Recorded Sex Assigned at Not on file Legal Sex Male 8:51 AM EST Gender Identity Not on file Sexual Orientation Not on file Plan of Treatment Not on file Medical Devices Not on file Insurance [facility] MEDICARE REPLACEMENT [facility] MEDICARE REPLACEMENT [facility] MEDICARE REPLACEMENT [facility] MEDICARE REPLACEMENT [facility] MEDICARE REPLACEMENT [facility] MEDICARE [facility]PLACEMENT [facility] MEDICARE REPLACEMENT [facility] MEDICARE REPLACEMENT [facility] MEDICARE REPLACEMENT Care Teams Tailing Hand Relationship Specialty Start Date End Date Kenneth Blanton DO [email or web address] PCP - General Internal Medicine 09/18/20 Additional Source Comments The information contained in this document represents components of the legal health record. It is not the complete legal health record.[facility]
--- OUTSIDE RECORDS SUMMARY | 2025-04-24 16:41 | XMS_ITS | Clinical Summary ---
Author Organization [employer] Address [address] [facility] [address] [place] [address] Care Team Providers Care Sanitary Aide Name Role Phone Unavailable Primary Care Provider [...] topic Meningococcal Vaccine Aged Out No ad shashi eligible based on patient's age to complete this topic RSV under 20 months Aged Out No longe r eligible based on patient's age to complete this topic Rotavirus Vaccines Aged Out No longer eligible based on patient's age to complete this topic Insurance [facility] [place] [address]
[2025-05-10 13:11] VITALS: BMI 21.5
[2025-05-10 13:15] VITALS: BP 138/66; PULSE 65; RESP 20; O2SAT 98
--- NOTE | 2025-05-10 13:21 | HO.ANESPROP2 ---
Documented by User: Elvira Gordon NP 05/10/25 13:33 HPI - Anesthesia Eval Consult details Narrative: 79yo M for Right Hernia Inguinal Reducible with mesh, 05/17/25 No recent illness No CP/SOB with walking golf course 5 days weekly ? TIA vs migraine 2019 Has followed with [facility] vascular for surveillence carotid US (neg), last office visit 04/2025 - now prn f/u only PMFSH Active Problems Active Problems: All Active Problems History of skin cancer (Acute) Enlarged prostate (Acute) Reducible right inguinal hernia (Acute) Past Medical History Medical History Skin cancer Chronic constipation BPH (benign prostatic hyperplasia) Hyperlipidemia TIA (transient ischemic attack) Reducible right inguinal hernia Family History Family history of problems with anesthesia: No Surgical History Surgical History Hx of vasectomy History of tonsillectomy History of Problems with Anesthesia: No (Only had tonsils as child) Social History Social History Are you a primary customer care team coach to a significant other at home: No Do you presently have visiting nurse or other home services: No Patient Tobacco Use Status: Never used Tobacco Tobacco use type: Cigarette Years Smoked: 2 Use of substances other than those prescribed or required for medical reasons: No Have you been hit, kicked, punched, or otherwise hurt by someone within the past year? If so, by whom?: No Spiritual Healthcare Practices: no Buddhist Healthcare Practices: no Cultural Healthcare Practices: no Are you DNR?: No Advance Directives on File: No Poor oral hygiene: No Meds Allergies Allergy/AdvReac Type Severity Reaction Status Date / Time sulfamethoxazole (From Allergy Severe hives Verified 04/19/25 13:58 Bactrim) trimethoprim (From Bactrim) Allergy Severe hives Verified 04/19/25 13:58 Home Medications ?Medication ?Instructions ?Recorded ?Confirmed ?Last Taken ?Type aspirin 81 mg tablet 81 mg PO QAM 04/19/25 05/10/25 Unknown History tamsulosin 0.4 mg capsule 0.4 mg PO BEDTIME 04/19/25 05/10/25 Unknown History Lactobacillus acidophilus and 1 cap PO DAILY 05/10/25 05/10/25 Unknown History rhamnosus 15 billion cell capsule (Probiotic) coenzyme Q10 100 mg capsule (Co 100 mg PO QAM 05/10/25 05/10/25 Unknown History Q-10) magnesium oxide 300 mg PO QAM 05/10/25 05/10/25 Unknown History turmeric 400 mg capsule 1,600 mg PO DAILY 05/10/25 05/10/25 Unknown History Exam Height,Weight and Vital Signs: Height 5 ft 10 in Weight 68.039 kg Last Vital Signs Pulse 65 05/10/25 13:15 Resp 20 05/10/25 13:15 BP 138/66 05/10/25 13:15 Pulse Ox 98 05/10/25 13:15 O2 Del Method Room Air 05/10/25 13:15 Narrative Narrative: Carotid US 03/2025 Summary: Right Side: 1-49% stenosis in the Internal Carotid Artery, previously 60/15 cm/s. Antegrade flow in the Vertebral Artery. Multiphasic flow is seen in the Subclavian Artery. Left Side: 1-49% stenosis in the Internal Carotid Artery, previously 70/19 cm/s. Antegrade flow in the Vertebral Artery. Multiphasic flow is seen in the Subclavian Artery. Comparison is made to the previous ultrasound study dated 03/06/24. Airway Mallampati Class: II TM Dist: >3cm Neck ROM: Full Loose/Missing/Broken Teeth: No (crowned molars) Heart: RRR Lungs: CTAB Assessment and Plan Assessment Anesthesia Assessment: Anesthesia Plan Discussed and PAT Visit Final Anesthetic Review Family History of Problems with Anesthesia: No History of Problems with Anesthesia: No (Only had tonsils as child) Documented by User: Pro Mason MD 05/17/25 08:23 [facility] Past Medical History Medical History Skin cancer Chronic constipation BPH (benign prostatic hyperplasia) Hyperlipidemia TIA (transient ischemic attack) Reducible right inguinal hernia Functional capacity: independent ambulation Surgical History Surgical History Hx of vasectomy History of tonsillectomy Social History Social History Are you a primary customer care team coach to a significant other at home: No Do you presently have visiting nurse or other home services: No Patient Tobacco Use Status: Never used Tobacco Tobacco use type: Cigarette Years Smoked: 2 Use of substances other than those prescribed or required for medical reasons: No Have you been hit, kicked, punched, or otherwise hurt by someone within the past year? If so, by whom?: No Spiritual Healthcare Practices: no Buddhist Healthcare Practices: no Cultural Healthcare Practices: no Are you DNR?: No Advance Directives on File: No Poor oral hygiene: No Meds Allergies Allergy/AdvReac Type Severity Reaction Status Date / Time sulfamethoxazole (From Allergy Severe hives Verified 04/19/25 13:58 Bactrim) trimethoprim (From Bactrim) Allergy Severe hives Verified 04/19/25 13:58 Home Medications ?Medication ?Instructions ?Recorded ?Confirmed ?Last Taken ?Type aspirin 81 mg tablet 81 mg PO QAM 04/19/25 05/10/25 Unknown History tamsulosin 0.4 mg capsule 0.4 mg PO BEDTIME 04/19/25 05/10/25 Unknown History Lactobacillus acidophilus and 1 cap PO DAILY 05/10/25 05/10/25 Unknown History rhamnosus 15 billion cell capsule (Probiotic) coenzyme Q10 100 mg capsule (Co 100 mg PO QAM 05/10/25 05/10/25 Unknown History Q-10) magnesium oxide 300 mg PO QAM 05/10/25 05/10/25 Unknown History turmeric 400 mg capsule 1,600 mg PO DAILY 05/10/25 05/10/25 Unknown History Exam Exam Date and Time: 05/17/2025 Assessment and Plan Final Anesthetic Review NPO: Yes ASA Class: II Final Preanesthetic Review: No Changes in Pt Med Stat, Meds/Allgs Chart Reviewed, Consent Obtained/Reviewed and Anes Risks/Benef Reviewed Patient Risk: Low Procedure Risk: Low Anesthetic Plan Anesthetic Plan: GA Disposition: Standard PACU
[2025-05-17] VITALS (8 sets, daily range): BP systolic 97–160; BP diastolic 52–75; PULSE 48–75; RESP 12–16; TEMP 36.1–36.8; O2SAT 96–100; BMI 21.2
[2025-05-17] MEDS: Lactated Ringers 1,000 ML 100 ML IVCONT (07:49)
--- NOTE | 2025-05-17 08:23 | MHC.SHP ---
Pre-Procedural Eval Section A - 24 Hr Update-Section A only Date of Service: 05/17/25 The patient is an INPATIENT: No Changes since office visit: No Cold of Flu in the past 2 weeks, No New Medical Problems, No Changes in Medication and No Patient answered all questions The patient has been examined within 24 hours of the surgical procedure. The History & Physical has been completed within 30 days and I have reviewed it.: Yes Section B - Complete if H&P > 30 days Chief Complaint: Unilateral inguinal hernia, without obstruction Allergies: Allergies Allergy/AdvReac Type Severity Reaction Status Date / Time sulfamethoxazole (From Allergy Severe hives Verified 04/19/25 13:58 Bactrim) trimethoprim (From Bactrim) Allergy Severe hives Verified 04/19/25 13:58 Plan I have reviewed the history and physical and performed a pertinent physical examination on my patient. No changes have occurred unless specified. Time Spent With Patient Time: Total time managing care of this patient today ____ minutes.
--- NOTE | 2025-05-17 09:25 | W.PM.OPN ---
Operative Note Operative Note Date of Service: 05/17/25 Narrative: Preop diagnosis: Large Right inguinal hernia, reducible Postop diagnosis: Large right inguinal hernia, reducible, indirect Procedure: Repair of a large right inguinal hernia with mesh Surgeon: Levy Amor MD Fashion Photographer: DUSTIN Thomas The patient is a 73-year-old male with a large reducible right inguinal hernia. He wanted to proceed with the repair in view of symptoms. Understood the technique of the procedure as well as the risks, benefits, and alternatives He was brought to the operating room and placed supine under general anesthesia via laryngeal mask airway. The right groin was prepped and draped in the usual sterile fashion. A surgical time-out was done. The patient received cefazolin 2 g IV preoperatively I infiltrated the planned line of incision with lidocaine 1%. I made an incision in the skin along an imaginary line from anterior superior iliac spine to the pubic ramus with a blade 15. This carried down with electrocautery through the full-thickness of the skin and subcutaneous fat we. We proceeded with this dissection until I was able to visualize the external oblique aponeurosis. I bluntly dissected the aponeurosis with a gauze to visualize and I define the external ring. I made a short incision on the external oblique aponeurosis overlying the canal with a blade 15. This was extended inferomedially to connect with the external ring. The inguinal canal was therefore entered. I applied hemostasis on the divided edges of the aponeurosis. I bluntly dissected the underside of the aponeurosis to create a pocket for the mesh The large sac along with the spermatic cord was seen. I had the bluntly dissected this with the index finger until I was able to pass a [place] drain around this. The Kevin drain was used for retraction. I identified the vas deferens and the accompanying vessels these were protected during the dissection. I proceeded to separate the large sac from the rest of the cord with gentle dissection with Metzenbaum scissors as well as electrocautery. The contents of the sac had been reduced earlier I proceeded to gently separate as much of the sac from the cord until was able to completely reduce this through the internal ring. This has therefore an indirect hernia. This has a large weakness in the internal ring so I used an extra-large Prolene plug. The plug was secured to the shelving edge of the inguinal ligament laterally and the internal oblique superiorly and medially using the inner leaves of the plug I reinforced the entire floor of the canal with a keyhole mesh. The tails of the mesh were passed around the cord at the level of the internal ring and secured together Prolene 2 sutures. I flattened the mesh and this was secured to the pubic ramus inferomedially, the shelving edge of the inguinal meant laterally and the internal oblique superiorly medially using Prolene 2 sutures I removed the Kevin drain. I observed for hemostasis. Once hemostasis was confirmed, I irrigated copiously I closed the external oblique aponeurosis with a running Polysorb 2-0 stitch to re-create the external ring I reapposed the subcutaneous layer with Polysorb 3-0 simple interrupted sutures. Skin closure was achieved with Polysorb 4-0 subcuticular running sutures. Dressings were applied. The incision was infiltrated with Marcaine 0.5% for postop analgesia. The procedure was completed The patient tolerated procedure well. There were no immediate complications. Initial and final counts of sponges and instruments were correct. Estimated blood loss was about 20 cc The patient is extubated without difficulty and transferred to the recovery room with stable vital signs.
== END 2025-05-17 11:43 | disposition home or self-care (01) ==
PROVIDERS: PCP Internal Medicine; Visit Provider Surgery
PROC: (CPT 49505; principal; 2025-05-17 09:20)
DX: K40.90 Unilateral inguinal hernia, without obstruction or gangrene, not specified as recurrent (principal); K59.09 Other constipation; E78.5 Hyperlipidemia, unspecified; N40.0 Benign prostatic hyperplasia without lower urinary tract symptoms; Z98.52 Vasectomy status; Z85.828 Personal history of other malignant neoplasm of skin; Z86.73 Personal history of transient ischemic attack (TIA), and cerebral infarction without residual deficits; Z79.82 Long term (current) use of aspirin; Z79.899 Other long term (current) drug therapy; Z88.2 Allergy status to sulfonamides
CPT/HCPCS: 49505; C1781; J0131; J0690; J1100; J2003; J2250; J2405; J2704; J2795; J3010

== ENCOUNTER → 2025-05-17 07:05 | Outpatient (BNV) | payer MEDICARE, SELFPAY | PROVIDERS: PCP Internal Medicine; Visit Provider Surgery | DX: K40.90 Unilateral inguinal hernia, without obstruction or gangrene, not specified as recurrent (principal) | CPT/HCPCS: 49505 ==

== ENCOUNTER 2025-05-31 09:42 | Outpatient (AMB) | payer MEDICARE, SELFPAY ==
--- OUTSIDE RECORDS SUMMARY | 2025-05-22 07:00 | XMS_ITS ---
Author Name [facility] [place] Organization [facility] [place] Address [address] [place] [address] Support Name Relationship Address Phone KALEY GALLEGOS Next of Kin [address] [place] [address] KALEY GALLEGOS Jesus Emergency Contact [address] [place] [address] Insurance Providers: All historical and current Section Date Range: From patient's date of to the date document was created. This section includes the names of all active insurance providers for the patient. Insurance Provider Type of Coverage Plan Name Start of Policy Coverage End of Policy Coverage Group Number Member ID Insurance Provider's Telephone Number Policy Cordoba's Name Patient's Relationship to Policy Cordoba Selected Encounter This section includes the information on record at [place] for the Encounter. Date/Time Encounter Type Encounter Description Reason Provider Source May 22, 2025 11:00 AM OFF/OP EST FEBRUARY X REQ PHY/QHP PRIMARY CARE/MEDICINE ICD-10-CM I10 Essential (primary) hypertension KENYA BARRERA E IHE Encounter Template Text not used by [place] Assessments - Encounter Diagnoses This section includes the primary and secondary diagnoses documented for the Encounter. Date/Time Primary/Secondary Diagnosis Diagnosis Name Provider Source May 22, 2025 11:21 AM PRIMARY Essential (primary) hypertension KENYA BARRERA E [place] [facility] [place] [facility] Plan of Treatment: Future Appointments (+ 6 months) and Future Tests (+/- 45 days) The Plan of Treatment section includes future care activities for the patient from all [place] treatmentfacilities. This section includes future appointments and future orders which are active, pending or scheduled. Future Appointments This section includes appointments that were scheduled to occur 6 months from the date of the Encounter, up to a maximum of 20 appointments. The data comes from all [place] treatment facilities. Appointment Date/Time Appointment Type Appointme nt Facility Name May 25, 2025 01:00 PM AMBULATORY - MEDICINE [facility] Active, Pending, and Scheduled Orders This section includes a listing of several types of active, pending, and scheduled orders, including clinic medications orders, diagnostic test orders, procedure orders and consult orders; where the start date of the order is 45 days before the date of the Encounter or 45 days after the date of theEncounter. The data comes from all [place] treatment facilities. Test Date/Time Test Type Test Details Facility Name May 25, 2025 01:42 PM Consult Order NEUROPSYCH OL TESTING/NHM OUTPT Cons Physical Damage Appraiser's Choice [facility] Lab Results: +/- 30 days of the encounter This section includes the Chemistry and Hematology Lab Results on record with [place] for the patient. Radiology Reports and Pathology Reports are provided separately, in subsequent sections. Lab Results This section contains the Chemistry/Hematology Results that were resulted 30 days before or 30 daysafter the date of the Encounter. Date/Time Source Result Type Result - Unit Interpretation Reference Range Specimen Type Comment May 25, 2025 02:11 PM [facility] SYPHILIS ABS W/RFLX SERUM Specimen Type: SERUM Comment: No laboratory evidence of syphilis infection. If recent exposure is suspected, re-draw sample in 2-4 weeks and repeat algorithm. Testing performed by T. pallidum specific immunoassay. Ordering Provider: TIM ALEJO Report Released Date/Time: May 25, 2025 01:41 PM Reporting [facility]: [facility] [address] [address] Performing Lab: [facility] [address] [address] SYPHILIS ABS W/RFLX Non Reactive Non Rawson ctive May 25, 2025 02:11 PM [facility] CBC BLOOD Specimen Type: BLOOD No comment entered. Ordering Provider: TIM ALEJO Report Released Date/Time: May 25, 2025 01:41 PM Reporting Lab: [facility] [address] [address] Performing Lab: [facility] [address] [address] WBC 5.67 10*3/uL 4.50-11.00 RBC 4.56 10*6/uL 4.23-5.66 HGB 15.3 g/dL 12.8-17 HCT 44.8 39.2-50.4 MCV 98.2 fL 82-99 MCHC 34.2 g/dL 30.8-35.1 PLT 245 10*3/uL 140-360 MPV 10.0 fL 9.2-12.4 RDW-CV 12.2 12.0-16.0 MCH 33.6 pg H 26.2-32.6 May 25, 2025 02:11 PM [facility] HEMOGLOBIN A1C PANEL BLOOD Specimen Type: BLO OD Comment: Values obtained from A1C measurements can vary. For atypical A1C assays, a reported value of 7.0 could actually be between 6.72 and 7.28 if measured by a reference method. A reported value of 9.0 could actually be between 8.73 and 9.27. Ref: http://www.ngsp.org/CAPdata.asp Ordering Provider: TIM ALEJO Report Released Date/Time: May 25, 2025 01:41 PM Reporting Lab: [facility] [address] [address] Performing Lab: [address] [address] HEMOGLOBIN A1C 5.3 4.0-5.6 May 25, 2025 02:11 PM [facility] TSH SERUM Specimen Type: SERUM No comment entered. Ordering Provider: TIM ALEJO Report Released Date/Time: May 25, 2025 01:41 PM Reporting Lab: [facility] [address] [address] Performing Lab: [address] [address] TSH 2.37 u[IU]/mL 0.35-4.94 May 25, 2025 02:11 PM [facility] BASIC METABOLIC PANEL (non-fasting) SERUM Spe cimen Type: SERUM No comment entered. Ordering Provider: TIM ALEJO Report Released Date/Time: May 25, 2025 01:41 PM Reporting Lab: [address] [address] Performing Lab: [address] [address] UREA NITROGEN 20 mg/dL 8-26 GLUCOSE 93 mg/dL 65-100 SODIUM 141 mmol/L 136-145 POTASSIUM 4.2 mmol/L 3.5-5.1 CHLORIDE 102 mmol/L 98-107 CO2 30 meq/L 23-31 CALCIUM 9.7 mg/dL 8.8-10 CREATININE, Serum 0.95 mg/dL 0.72-1.25 eGFR(CKD-EPI 2020) 81 mL/min >60 May 25, 2025 02:11 PM [facility] LIVER FUNCTION SERUM Specimen Type: SERUM No comment entered. Ordering Provider: TIM ALEJO Report Released Date/Time: May 25, 2025 01:41 PM Reporting Lab: [address] [address] Performing Lab: [address] [address] PROTEIN,TOTAL 7.1 g/dL 6.4-8.3 ALBUMIN 4.6 g/dL 3.2-4.6 ALKALINE PHOSPHATASE 85 U/L 40-150 AST 21 U/L 5-34 ALT 17 U/L 0-55 BILIRUBIN, TOTAL 0.3 mg/dL 0.2-1.2 May 25, 2025 02:11 PM [facility] LIPID PANEL, NON FASTING SERUM Specimen Type: SERUM No comment entered. Ordering Provider: TIM ALEJO Report Released Date/Time: May 25, 2025 01:41 PM Reporting Lab: [address] [address] Performing Lab: [address] [place] [address] CHOLESTEROL 179 mg/dL TRIGLYCERIDE 125 mg/dL 0-150 LDL calculated 113 mg/dL 0-129 CHOL/HDL 4.4 HDL CHOLESTEROL 41 mg/dL >40 May 25, 2025 02:11 PM [facility] VITAMIN B12 SERUM Specimen Type: SERUM No comment entered. Ordering Provider: TIM ALEJO Report Released Date/Time: May 25, 2025 01:41 PM Reporting Lab: [facility] [address] [address] Performing Lab: [address] [address] VITAMIN B12 766 pg/mL 213-816 May 25, 2025 02:11 PM [facility] VITAMIN D (25-OH) SERUM Specimen Type: SERUM No comment entered. Ordering Provider: TIM ALEJO Report Released Date/Time: May 25, 2025 01:41 PM Reporting Lab: [address] [address] Performing Lab: [address] [address] VITAMIN D (25-OH) 45.8 ng/mL 20-50 May 25, 2025 02:11 PM [facility] MAGNESIUM SERUM Specimen Type: SERUM No comment entered. Ordering Provider: TIM ALEJO Report Released Date/Time: May 25, 2025 01:41 PM Reporting Lab: [address] [address] Performing Lab: [address] [address] MAGNESIUM 2.2 mg/dL 1.6-2.6 May 25, 2025 02:11 PM [facility] FOLATE SERUM Specimen Type: SERUM Comment: Hemolysis present analysis cannot be performed. Ordering Provider: TIM ALEJO Report Released Date/Time: May 25, 2025 01:41 PM Reporting Lab: [address] [place] [address] Performing Lab: [facility] [address] [facility] [address] FOLATE comment ng/mL 7.0-31.4 Vital Signs: All taken on the encounter date This section contains inpatient and outpatient Vital Signs collected on the date of the Encounter. Date/Time Temperature Pulse Blood Pressure Respiratory Rate SP02 Pain Height Weight Body Mass Index Source May 22, 2025 01:54 PM 160/83 mm[Hg] [facility] May 22, 2025 11:09 AM 97.3 F 71 /min 160/83 mm[Hg] 20 /min 98 % 1 70 in 151 lb 22 [facility] Social History: Smoking Status (Most current) and Tobacco Use (All prior to encounter date) This section includes the most current, and the historical, smoking and tobacco- related health factors from the [place] facility where the Encounter took place. Current Smoking Status This section includes the most current smoking, or tobacco-related health factor, from the [place] facility where the Encounter took place. Date/Time Current Smoking Status Comment Facil ity May 22, 2025 11:00 AM [place]-TOBACCO NEVER U SED CIGARETTES [facility] Tobacco Use History This section includes a history of the smoking, or tobacco-related health factors, that were collected on or before the date of the Encounter. The data comes from the [place] facility where the Encounter took place. Date/Time Smoking Status/Tobacco Use Comment F acility May 22, 2025 11:00 AM [place]-TOBACCO NEVER U SED OTHER TYPE [facility] Advance Directives: All historical and current Section Date Range: From patient's date of to the date document was created. This section includes ALL of a patient's completed or amended [place] Advance and Rescinded Directives. The entries below indicate that a directive exists for the patient, but an actual copy is not included with this document. The data comes from all [place] facilities. Date Advance Directives Provider Source May 25, 2025 ADVANCE DIRECTIVE KALEY PARKER [facility] Radiology Reports: +/- 30 days of the encounter Radiology Reports For cases when an order for radiology services may have been completed prior to the date of the Encounter, the report list includes the Radiology Reports that were completed up to 30 days before dateof the Encounter. For cases when an order for radiology services may have been completed after the date of the Encounter, the report list also includes the Radiology Reports that were completed up to30 days after date of the Encounter. The data comes from all [place] treatment facilities. Date/Time Radiology Report Provider Source May 25, 2025 01:55 PM SPINE LUMBOSACRAL MIN 2 VIEWS: MORGAN GALLEGOS [id number] -[phone] M Exm Date: MAY 25, 2025@13:55 Req Phys: TIM ALEJO Loc: [facility] PACT 7 BRONZE CHASER (Req'g Loc) Img Loc: [facility] 1 Service: [place] [address] (Case [id number] COMPLETE) SPINE LUMBOSACRAL MIN 2 VIEWS (RAD Detailed) CPT:06649 Reason for Study: low back pain Clinical History: Report Status: Verified Date Reported: MAY 25, 2025 Date Verified: MAY 25, 2025 Licensed Embalmer Supervisor E-Sig:/ES/IVELISSE SCHMITT JR Report: Study: AP and lateral views of the lumbar spine. COMPARISON: None. FINDINGS: There are 5 lumbar type vertebral bodies identified. Mild to moderate diffuse degenerative disc disease changes present throughout the lumbar spine, most pronounced at the L5-S1 level. There is overall straightening of the normal lumbar lordosis present likely secondary to multilevel degenerative changes without anterolisthesis or retrolisthesis identified. Moderate lower lumbar spine facet joint hypertrophic changes are present. The vertebral body heights are normal. The bony mineralization is normal. The sacroiliac joints are normal for age. The paraspinal soft tissues appear normal. Impression: Multilevel degenerative changes, as described above. Primary Diagnostic Code: No immediate attention required Primary Interpreting Staff: IVELISSE SCHMITT JR, Radiologist (Licensed Embalmer Supervisor) /IVELISSE EID JR [facility] Encounter Notes: All associated encounter notes This section contains the clinical notes associated to the Encounter. Date/Time Encounter Note(s) Provider Source May 22, 2025 11:22 AM MEDICATION MGT NOTE: LOCAL TITLE: MEDICATION RECONCILIATION STANDARD TITLE: MEDICATION MGT NOTE DATE OF NOTE: MAY 22, 2025@11:22 ENTRY DATE: MAY 22, 2025@11:23:04 AUTHOR: FAHAD BARRERA COSIGNER: URGENCY: STATUS: COMPLETED Vet has not seen a Provider in several years. Juan was given an appt with: Dr. Alejo on 05/25/25@1300 === F: Medication reconciliation D: Juan says that he is on the following Medications: 1. Aspirin 81 MG EC tablet Take 81 mg by mouth in the morning. Active 2. Co Q-10 = 100 mg, By Mouth, Daily, 0 Refills, Maintenance, 03/09/23 10:52:00 AM EDT, Partial fill upon patient request if the prescription is for a schedule II opioid drug. Start Date: 03/09/23 Status: Ordered Repeat number: 1 3. Tamsulosin 0.4 mg oral capsule 30 each, 0 Refill(s), TAKE 1 CAPSULE BY MOUTH ONCE DAILY, Refills 0, 04/17/25 11:44:00 AM EDT, Partial fill upon patient request if the prescription is for a schedule II opioid drug. Start Date: 04/17/25 Status: Ordered Repeat number: 1 4. Turmeric By Mouth, Daily, 0 Refills, Maintenance, 03/08/24 8:20:00 AM EDT, Partial fill upon patient request if the prescription is for a schedule II opioid drug. Start Date: 03/08/24 Status: Ordered Repeat number: 1 5. Magnesium 420mg by mouth Daily ===== Juan says that he has the following Medical Hx: 1. Transient ischemic attack ===== Vet says that he has the following community Providers: 1. Primary Care Provider [employer] 2. Krys Cornejo Position: Reference Physician Member Role: PCP Address: [address] [place] [address] [place] [address]- [place] Telecom: [facility] 3. [facility] [id number] Date(s): 04/17/25 - 05/17/25 [facility] [address] [place] [address]- ====== Vet says that he has allergies or adverse effects to the following Medications: 1. Sulfa Drugs PDMP: Morgan Gallegos 1945 Summary Summary Total Prescriptions: 1 Total Prescribers: 1 Total Pharmacies: 1 Narcotics* (excluding Buprenorphine) Current Qty: 0 Current MME/day: 0.00 30 Day Avg MME/day: 5.00 Buprenorphine* Current Qty: 0 Current mg/day: 0.00 30 Day Avg mg/day: 0.00 Prescriptions Prescriptions Total Prescriptions: 1 Total Private Pay: 0 Fill Date ID Written Sold Drug Qty Days Prescriber Rx # Pharmacy Refill Daily Dose * Pymt Type COMPOSITION SIDING WORKER 05/17/2025 1 05/17/2025 05/17/2025 Oxycodone-Acetaminophen 5-325 20.00 5 Fr Mar [id number] [facility] (3171) 0/0 30.00 [place] *Per CDC guidance, the MME conversion factors prescribed or provided as part of the medication-assisted treatment for opioid use disorder should not be used to benchmark against dosage thresholds meant for opioids prescribed for pain. Buprenorphine products have no agreed upon morphine equivalency, and as partial opioid agonists, are not expected to be associated with overdose risk in the same dose-dependent manner as doses for full agonist opioids. MME = morphine milligram equivalents. mg = dose in milligrams. Providers Total Providers: 1 Name Address [facility] Zipcode Phone Levy Amor [address] [place] [address] [address] M[address]racken [address] [facility] [address] - Pharmacies Total Pharmacies: 1 Name Address [facility] Zipcode Phone [facility] [phone] [facility] [address] /es/ FAHAD BARRERA MSN Ed., BSN TEMPERER NURSE Signed: 05/22/2025 13:47 Receipt Acknowledged By: 05/23/2025 13:17 /es/ Patrick Fenton, Health Hydrographer ASSISTANT DIRECTOR OF SECURITY,PRIMARY CARE 05/22/2025 14:02 /es/ Tim Alejo DNP, EXAMINATION GRADER-BC, CNL Primary Care Nurse Practitioner 05/22/2025 14:02 /es/ VINH MORTON MSN, RN, CNL Primary Care RN FAHAD BARRERA [facility] May 22, 2025 11:22 AM LETTERS: LOCAL TITLE: PATIENT LETTER (B) STANDARD TITLE: LETTERS DATE OF NOTE: MAY 22, 2025@11:22 ENTRY DATE: MAY 22, 2025@11:22:17 AUTHOR: FAHAD BARRERA EXP COSIGNER: URGENCY: STATUS: [place] [address] [phone] * [phone] * Date: 05/22/25 Dear Sebastian: Morgan Thank you for choosing the [facility] ([place]) [facility] [place]. Please be a few minutes early to this appt- about 15 mins. We would like to update your demographic information. To schedule or if you would like more information regarding [place] health care benefits, please call toll free at [phone]), visit the [place] website at [email or web address], or contact your local [place] Medical Center. Welcome to patient aligned care team (Pact Team 7) with (Dr. Nick Alejo). Prior to meeting you at your new patient appointment we are requesting some of your past medical history so that we may provide you with the exceptional care you deserve. Please note that it is very helpful to have these documents prior to your appointment date as the more information we have the better we will be able to meet your needs: * Last History & Physical * Immunization records * Medication list * Diagnosis list * Most recent labs * Diagnostic screens (Colonoscopy, Abdominal Aortic Aneurysm screen, Mammograms, PAPS, etc.) We have scheduled the following appt with you to see your new PCP: Your appt is scheduled for (05/25/25@1300)- This appt will be about an hour long appt which will give you and your Provider a chance to get to know each other. We have noticed that you are due to receive the following Immunizations: 1. Zoster vaccine- 2 shot series 2. TD/TDAP immunization 3. Covid 19 vaccine 4. Pneumococcal PCR 15, & 20 5. Influenza Vaccine- after 06/18/25 6. RSV Immunization You may either bring your records with you to your scheduled appointment, or drop them off ahead of your appointment or you may have them faxed to [phone] ATTN: BRYAN/CORDELL/PACT- Asa-Melo If you have any questions, please do not hesitate to contact the Department of 's Affairs call center at Ext [phone]. Just so that you know if you're feeling sick we have sick call hours at the [facility], and [facility]- Mon thru Wednesday 08-1530- first come first serve- walk-in basis. WO also has sick call hours Mon- Wed- 1100-12N, and 3P-4P- first come first serve basis- no appt needed. You can utilize our sick call system once you have seen the PCP for the first appt. Audiology Phone number- [phone]- Ext [phone] Optometry Phone Number- [phone]- Ext [phone] Mental Health Clinic- [phone] Ext- [phone] Eligibility/Enrollment- [phone]- [phone] Veterans Rep [phone] Ext [phone] [facility] [phone] [place] Transportation [phone] Ext [phone], or,[phone] [place] [employer] [phone] ( Call within 72hrs of being seen in an acute care setting Sincerely. [facility] [address] [place] [address] Phone: Ext [phone] Upcoming Appointments: 05/25/25@1300- CWM/NO/PACT-7- Melo Barrera MSN Ed., BSN, RN [facility] [address] [place] [phone] [place] [address] - Ext [phone] [facility] Outpatient [id number] [place] [address] # [phone] [place] [address] FAHAD BARRERA [place] [facility] [place] [facility] May 22, 2025 11:21 AM LETTERS: LOCAL TITLE: PATIENT LETTER (B) STANDARD TITLE: LETTERS DATE OF NOTE: MAY 22, 2025@11:21 ENTRY DATE: MAY 22, 2025@11:21:50 AUTHOR: FAHAD BARRERA EXP COSIGNER: URGENCY: STATUS: COMPLETED [facility] [address] [facility] [address] * * Date: 05/22/25 Dear : Morgan Thank you for choosing the [facility] ([place]) [facility]. The Whole Health Program aims to support you in pursuing what matters most to you, and includes services that support your values and overall wellness. This includes the following offerings: * Yoga * Acupuncture * Norene Acupuncture for Acute Pain (offered weekly; drop-in or scheduled) * Individual health coaching * Development Specialist * Biofeedback for Hypertension and Anxiety * Guided Imagery Group * Meditation Group * Cancer Support Group * Stress Management Group ( Stress Less ) The following require no referral from a provider, and can be initiated by you at any time: * Yoga * Meditation * Norene Acupuncture * Cancer Support Group * Individual Health Coaching * Stress Management Group ( Stress Less ) If interested in any of the above offerings, please reach out to the Whole Health Team at ext. [phone] or a provider on your VA team. To schedule consult-required services, or if you would like more information regarding [place] health care benefits, please call toll free at [phone]), visit the [place] website at [email or web address], or contact your local [place] Medical Center. If you have any questions, please do not hesitate to contact the Department of 's Affairs call center. Sincerely, Dr. Abby Gimenez Whole Health Resident Manager [facility] Direct ext. [phone] FAHAD BARRERA [place] [facility] [place] [facility] May 22, 2025 11:13 AM PREVENTIVE MEDICINE NURSING NOTE: LOCAL TITLE: CLINICAL REMINDERS/NURSING STANDARD TITLE: PREVENTIVE MEDICINE NURSING NOTE DATE OF NOTE: MAY 22, 2025@11:13 ENTRY DATE: MAY 22, 2025@11:13:22 AUTHOR: FAHAD BARRERA COSIGNER: URGENCY: STATUS: COMPLETED CLINICAL REMINDERS/NURSING Has ADDENDA Advance Directive Screen MH AD: Patient does not have an Advance Directive completed and is requesting more information. The patient received education about Advance Directives and written notification of his/her rights. Vet was given an advanced directive and was asked to fill out and bring in for PCP appt. Depression Screening: Perform PHQ-2 A PHQ-2 screen was performed. The score was 0 which is a negative screen for depression. Over the past two weeks, how often have you been bothered by the following problems? 1. Little interest or pleasure in doing things Not at all 2. Feeling down, depressed, or hopeless Not at all Suicide Screen: C-SSRS Screening [place] Suicide Severity Rating Scale (C-SSRS) screener 1. Over the past month, have you wished you were or wished you could go to sleep and not wake up? No 2. Over the past month, have you had any actual thoughts of killing yourself? No 3. Over the past month, have you been thinking about how you might do this? Response not required due to responses to other questions. 4. Over the past month, have you had these thoughts and had some intention of acting on them? Response not required due to responses to other questions. 5. Over the past month, have you started to work out or worked out the details of how to kill yourself? Response not required due to responses to other questions. 6. If yes, at any time in the past month did you intend to carry out this plan? Response not required due to responses to other questions. 7. In your lifetime, have you ever done anything, started to do anything, or prepared to do anything to end your life (for example, collected pills, obtained a gun, gave away valuables, went to the roof but didn't jump)? No 8. If YES, was this within the past 3 months? Response not required due to responses to other questions. Homelessness/Food Insecurity Screen: In the past 2 months, have you been living in stable housing that you own, rent, or stay in as part of a household? Yes - Living in stable housing. Are you worried or concerned that in the next 2 months you may NOT have stable housing that you own, rent, or stay in as part of a household? No - Not worried about housing near future The reports the following: Within the past 12 months, you worried whether your food would run out before you got money to buy more. Never true Within the past 12 months, the food you bought just didn't last and you didn't have money to get more. Never true Falls & Incontinence Screen: Falls Screen: During the past 12 months, did the patient report any falls? 4. No falls within the past year. Incontinence Screen: During the past 12 months, has the patient has any characteristics of incontinence (ability, voiding, leakage, etc.)? No incontinence. MST Screening: Patient denies experiencing sexual trauma (MST). Preferred Language: What is your, or your caregiver's preferred language for healthcare? Preferred Language: Belgian PTSD Screening: PC-PTSD-5 A PTSD screening test (PC-PTSD-5) was negative (score=0). Sometimes things happen to people that are unusually or especially frightening, horrible or traumatic. For example: A serious accident or fire a physical or sexual assault or abuse An earthquake or flood A war Seeing someone be killed or seriously injured Having a loved one through homicide or suicide 1. Have you ever experienced this kind of event? NO 2. Had nightmares about the event(s) or thought about the event(s) when you did not want to? Response not required due to responses to other questions. 3. Tried hard not to think about the event(s) or went out of your way to avoid situations that reminded you of the event(s)? Response not required due to responses to other questions. 4. Been constantly on guard, watchful, or easily startled? Response not required due to responses to other questions. 5. [place] numb or detached from people, activities, or your surroundings? Response not required due to responses to other questions. 6. [place] guilty or unable to stop blaming yourself or others for the event(s) or any problems the event(s) may have caused? Response not required due to responses to other questions. Tobacco Use Screening: The patient has never smoked cigarettes. The patient has never used other types of tobacco. Influenza Immunization: No influenza vaccination was received during the recent influenza season. Alcohol Use Screen (AUDIT-C): Alcohol Screen: SCREEN FOR ALCOHOL (AUDIT-C) An alcohol screening test (AUDIT-C) was negative (score=1). 1. How often did you have a drink containing alcohol in the past year? Consider a drink to be a 12 ounce can or bottle of regular beer, 8 ounces of malt liquor, a 5 ounce glass of table wine, or a 1.5 ounce shot of liquor (like scotch, gin, or vodka). Monthly or less 2. How many drinks containing alcohol did you have on a typical day when you were drinking in the past year? One or two drinks 3. How often did you have six or more drinks on one occasion in the past year? Never COVID-19 Immunization: Additional Information: [facility] Interim Clinical Considerations for Use of COVID-19 Vaccines in [facility] COVID-19 Vaccine SharePoint Refused Moderna Monovalent COVID-19 vaccine Immunization: COVID-19 (MODERNA), MRNA, LNP-S, PF, 50 MCG/0.5 ML (AGES 12+ YEARS) Refusal Reason: PATIENT DECISION Patient refuses all immunization(s) in the COVID-19 group Comment: Refuses all covid vaccines Date Documented: 05/22/25 11:20 /braden/ FAHAD BARRERA MSN Ed., BSN TEMPERER NURSE Signed: 05/22/2025 11:21 05/22/2025 ADDENDUM STATUS: COMPLETED HTN Assess for Elevated BP>=140/90: Repeat blood pressure: 160/83 The patient was counseled on the importance of regular exercise and/or physical activity in the control of blood pressure. The patient was instructed to try to participate in 120 minutes of aerobic exercise per week if possible and that any increase in physical activity may be useful in controlling blood pressure. The patient was counseled on the importance of diet and weight loss/ control in the regulation of blood pressure. The patient was counseled to reduce their weight to within 10 percent of their ideal body weight. The possible improvement in blood pressure control with even 5 to 10 pounds of weight loss was reviewed. The contribution of dietary sodium to elevated blood pressure was reviewed. The patient was counseled to have a goal sodium intake of 1500mg per day, with no more than 2300mg per day. The patient was counseled that a diet low in dietary saturated and trans fats is beneficial in lowering blood pressure. The patient was counseled that a diet rich in fresh fruits, vegetables and whole grains is beneficial in lowering blood pressure. The patient was counseled to limit alcohol intake to no more than 2 drinks per day for men and 1 drink per day for women. /braden/ FAHAD BARRERA MSN Ed., BSN TEMPERER NURSE Signed: 05/22/2025 13:55 FAHAD BARRERA [facility]
--- OUTSIDE RECORDS SUMMARY | 2025-05-25 09:00 | XMS_ITS | Encounter Summary ---
Author Name [facility] [place] [facility] [place] [facility] [place] Address [address] [place] [address] Support Name Relationship Address Phone KALEY PRYOR Next of Kin [address] [place] [phone] KALEY PRYOR Emergency Contact [address] [place] [address] Insurance Providers: All historical and [...] section includes the information on record at [place] for the Encounter. Date/Time Encounter Type Encounter Description Reason Provider Source May 25, 2025 01:00 PM Outpatient Encounter PRIMARY CARE/MEDICINE TIM MOMIN Encounter Template Text not used by [place] Plan of Treatment: Future Appointments (+ 6 months) and Future Tests (+/- 45 days) The Plan of Treatment section includes future care activities for the patient from all [place] treatmentfacilities. This section includes future appointments and future orders which are active, pending or scheduled. Active, Pending, and Scheduled Orders This section includes a listing of several types of active, pending, and scheduled orders, including clinic medications orders, diagnostic test orders, procedure orders and consult orders; where the start date of the order is 45 days before the date of the Encounter or 45 days after the date of theEncounter. The data comes from all [place] treatment facilities. Test Date/Time Test Type Test Details Facility Name May 25, 2025 01:42 PM Consult Order NEUROPSYCH OL TESTING/[facility] OUTPT Cons [facility] Lab Results: +/- 30 days of the encounter This section includes the Chemistry and Hematology Lab Results on record with [place] for the patient. Radiology Reports and Pathology Reports are provided separately, in subsequent sections. Lab Results This section contains the Chemistry/Hematology Results that were resulted 30 days before or 30 daysafter the date of the Encounter. Date/Time Source Result Type Result - Unit Interpretation Reference Range Specimen Type Comment May 25, 2025 02:11 PM [facility] SYPHILIS ABS W/RFLX SERUM Specimen Type: SERUM Comment: No laboratory evidence of syphilis infection. If recent exposure is suspected, re-draw sample in 2-4 weeks and repeat algorithm. Testing performed by T. pallidum specific immunoassay. Ordering Provider: TIM MOMIN Report Released Date/Time: May 25, 2025 01:41 PM Reporting Lab: [facility] [address] [facility] [address] Performing Lab: [facility] [address] [facility] [address] SYPHILIS ABS W/RFLX Non Reactive Non [place] ctive May 25, 2025 02:11 PM [facility] CBC BLOOD Specimen Type: BLOOD No comment entered. Ordering Provider: TIM MOMIN Report Released Date/Time: May 25, 2025 01:41 PM Reporting Lab: [facility] [address] [facility] [address] Performing Lab: [facility] [address] [facility] [address] WBC 5.67 10*3/uL 4.50-11.00 RBC 4.56 10*6/uL 4.23-5.66 HGB 15.3 g/dL 12.8-17 HCT 44.8 39.2-50.4 MCV 98.2 fL 82-99 MCHC 34.2 g/dL 30.8-35.1 PLT 245 10*3/uL 140-360 MPV 10.0 fL 9.2-12.4 RDW-CV 12.2 12.0-16.0 MCH 33.6 pg H 26.2-32.6 May 25, 2025 02:11 PM [facility] HEMOGLOBIN A1C PANEL BLOOD Specimen Type: BLO OD Comment: Values obtained from A1C measurements can vary. For atypical A1C assays, a reported value of 7.0 could actually be between 6.72 and 7.28 if measured by a reference method. A reported value of 9.0 could actually be between 8.73 and 9.27. Ref: http://www.ngsp.org/CAPdata.asp Ordering Provider: TIM MOMIN Report Released Date/Time: May 25, 2025 01:41 PM Reporting Lab: [address] [address] Performing Lab: [address] [address] HEMOGLOBIN A1C 5.3 4.0-5.6 May 25, 2025 02:11 PM [facility] TSH SERUM Specimen Type: SERUM No comment entered. Ordering Provider: TIM MOMIN Report Released Date/Time: May 25, 2025 01:41 PM Reporting Lab: [address] [address] Performing Lab: [address] [address] TSH 2.37 u[IU]/mL 0.35-4.94 May 25, 2025 02:11 PM [facility] BASIC METABOLIC PANEL (non-fasting) SERUM Spe cimen Type: SERUM No comment entered. Ordering Provider: TIM MOMIN Report Released Date/Time: May 25, 2025 01:41 PM Reporting Lab: [address] [address] Performing Lab: [address] [address] UREA NITROGEN 20 mg/dL 8-26 GLUCOSE 93 mg/dL 65-100 SODIUM 141 mmol/L 136-145 POTASSIUM 4.2 mmol/L 3.5-5.1 CHLORIDE 102 mmol/L 98-107 CO2 30 meq/L 23-31 CALCIUM 9.7 mg/dL 8.8-10 CREATININE, Serum 0.95 mg/dL 0.72-1.25 eGFR(CKD-EPI 2020) 81 mL/min >60 May 25, 2025 02:11 PM [facility] LIVER FUNCTION SERUM Specimen Type: SERUM No comment entered. Ordering Provider: TIM MOMIN Report Released Date/Time: May 25, 2025 01:41 PM Reporting Lab: [facility] [address] [facility] [address] Performing Lab: [address] [address] PROTEIN,TOTAL 7.1 g/dL 6.4-8.3 ALBUMIN 4.6 g/dL 3.2-4.6 ALKALINE PHOSPHATASE 85 U/L 40-150 AST 21 U/L 5-34 ALT 17 U/L 0-55 BILIRUBIN, TOTAL 0.3 mg/dL 0.2-1.2 May 25, 2025 02:11 PM [facility] LIPID PANEL, NON FASTING SERUM Specimen Type: SERUM No comment entered. Ordering Provider: TIM MOMIN Report Released Date/Time: May 25, 2025 01:41 PM Reporting Lab: [facility] [address] [facility] [address] Performing Lab: [address] [address] CHOLESTEROL 179 mg/dL TRIGLYCERIDE 125 mg/dL 0-150 LDL calculated 113 mg/dL 0-129 CHOL/HDL 4.4 HDL CHOLESTEROL 41 mg/dL >40 May 25, 2025 02:11 PM [facility] VITAMIN B12 SERUM Specimen Type: SERUM No comment entered. Ordering Provider: TIM MOMIN Report Released Date/Time: May 25, 2025 01:41 PM Reporting Lab: [address] [address] Performing Lab: [address] [address] VITAMIN B12 766 pg/mL 213-816 May 25, 2025 02:11 [facility] VITAMIN D (25-[place]) SERUM Specimen Type: SERUM No comment entered. Ordering Provider: TIM MOMIN Report Released Date/Time: May 25, 2025 01:41 PM Reporting Lab: [facility] [address] [facility] [address] Performing Lab: [facility] [address] [address] VITAMIN D (25-[place]) 45.8 ng/mL 20-50 May 25, 2025 02:11 PM [facility] MAGNESIUM SERUM Specimen Type: SERUM No comment entered. Ordering Provider: TIM MOMIN Report Released Date/Time: May 25, 2025 01:41 PM Reporting Lab: [facility] [address] Performing Lab: [facility] [address] MAGNESIUM 2.2 mg/dL 1.6-2.6 May 25, 2025 02:11 PM [facility] FOLATE SERUM Specimen Type: SERUM Comment: Hemolysis present analysis cannot be performed. Ordering Provider: TIM MOMIN Report Released Date/Time: May 25, 2025 01:41 PM Reporting Lab: [facility] [address] Performing Lab: [facility] [address] FOLATE comment ng/mL 7.0-31.4 Vital Signs: All taken on the encounter date This section contains inpatient and outpatient Vital Signs collected on the date of the Encounter. Date/Time Temperature Pulse Blood Pressure Respiratory Rate SP02 Pain Height Weight Body Mass Index Source May 25, 2025 12:49 PM 98.1 F 69 /min 165/76 mm[Hg] 20 /min 99 % 0 70 in 152 lb 22 [facility] Social History: Smoking Status (Most current) and Tobacco Use (All prior to encounter date) This section includes the most current, and the historical, smoking and tobacco- related health factors from the [place] facility where the Encounter took place. Current Smoking Status This section includes the most current smoking, or tobacco-related health factor, from the [place] facility where the Encounter took place. Date/Time Current Smoking Status Comment Pedro ity May 22, 2025 11:00 AM [place]-TOBACCO NEVER U SED CIGARETTES [facility] Tobacco Use History This section includes a history of the smoking, or tobacco-related health factors, that were collected on or before the date of the Encounter. The data comes from the [place] facility where the Encounter took place. Date/Time Smoking Status/Tobacco Use Comment F acility May 22, 2025 11:00 AM [place]-TOBACCO NEVER U SED OTHER TYPE [facility] Advance Directives: All historical and current Section Date Range: From patient's date of to the date document was created. This section includes ALL of a patient's completed or amended [place] Advance and Rescinded Directives. The entries below indicate that a directive exists for the patient, but an actual copy is not included with this document. The data comes from all [place] facilities. Date Advance Directives Provider Source May 25, 2025 ADVANCE DIRECTIVE KALEY PARKER [facility] Radiology Reports: +/- 30 days of the [...] the Encounter. The data comes from all [place] treatment facilities. Date/Time Radiology Report Provider Source May 25, 2025 01:55 PM SPINE LUMBOSACRAL MIN 2 VIEWS: ROYAWOOD JEANINE [id number] -[phone] M Exm Date: MAY 25, 2025@13:55 Req Phys: TIM MOMIN Loc: [facility] PACT 7 MUNITIONS HANDLER (Req'g Loc) Img Loc: [facility]/BUILDING 1 Service: Unknown [facility] KIMBERLYN CARTER [id number] (Case [id number] COMPLETE) SPINE LUMBOSACRAL MIN 2 VIEWS (RAD Detailed) CPT:58173 Reason for Study: low back pain Clinical History: Report Status: Verified Date Reported: MAY 25, 2025 Date Verified: MAY 25, 2025 Client Director E-Sig:/ES/IVELISSE SCHMITT JR Report: Study: AP and [...] Primary Interpreting Staff: IVELISSE SCHMITT JR, Radiologist (Client Director) /IVELISSE EID JR [facility] Encounter Notes: All associated encounter notes This section contains the clinical notes associated to the Encounter. Date/Time Encounter Note(s) Provider Source May 25, 2025 12:54 PM PREVENTIVE MEDICIN E NURSING NOTE: LOCAL TITLE: CLINICAL REMINDERS/NURSING STANDARD TITLE: PREVENTIVE MEDICINE NURSING NOTE DATE OF NOTE: MAY 25, 2025@12:54 ENTRY DATE: MAY 25, 2025@12:54:37 AUTHOR: PATIRCK GARCIA EXP COSIGNER: URGENCY: STATUS: COMPLETED RHS Screen: RHS Screen Session Format: Face to Face Environmental Check Screening was not completed at this time due to: Another adult present /braden/ Patrick Garcia [facility] Email Production Consultant SALES RECRUITMENT SPECIALIST,PRIMARY CARE Signed: 05/25/2025 12:55 PATRICK GARCIA [facility]
--- OUTSIDE RECORDS SUMMARY | 2025-05-31 05:46 | XMS_ITS | Continuity of Care Document ---
Author Name [facility] Organization [facility] Care Team Providers Care Appeals Court Associate Justice Name Role Phone [facility] Unavailable Unavailable Problems Combined list of problems from Department of [facility] and [facility] facilities. It does not include entries that were removed or entered in error. Problem Status Onset Date Problem Type Date of Resolution Comments Source Transient ischemic attack Active Condition [facility] Diagnosis: ICD-10-CM I10 Essential (primary) hypertension Active Diagnosis [facility] Medications Combined list of outpatient medications from Department of Defense and [facility] facilities.Medications provided include 1) outpatient medications from the last 15 months, and 2) patient-reported medications. Medication Details Route Status Patient Instructions Prescription Expires Prescription Number Last Dispense Date Ordering Provider Order Date Order Qty Source TAMSULOSIN HCL 0.4MG CAP TAKE TWO CAPSULES BY MOUTH AT BEDTIME FOR ENLARGED PROSTATE ORAL ACTIVE 05/26/2026 [id number] 5 TIM MOMIN 2024 180 [facility] Allergies, Adverse Reactions, Alerts Combined list of allergies from Department of Defense and Veterans Affairs facilities. It does not include entries that were removed or entered in error. Substance Category Reaction Severity Reaction type Status Date Reported Comments Source SULFA DRUGS Propensity to adverse reactions to drug (finding) Urticaria active 5 [facility] LabPRESBYTERIAN SANT[facility] MEDICAL CENTERFirmPlay [facility] Results Combined list of recent chemistry, hematology and other laboratory results from Department of [facility] and Veterans Affairs, ranging from 15 months to all on record, depending upon the facility. Order Name Results Value Reference Range Date Interpretation Specimen Comments Source SYPHILIS ABS W/RFLX REAGIN AB [PRESENCE] IN SERUM BY RPR Non Reactive 05/25 Specimen Type: SERUM Comment: No laboratory evidence of syphilis infection. If recent exposure is suspected, re-draw sample in 2-4 weeks and repeat algorithm. Testing performed by T. pallidum specific immunoassay . Ordering Provider: SAILAJA MOMIN Report Released Date/Time: May 25, 2025 01:41 PM Reporting Lab: [facility] [address] [facility] [address] Performing Lab: [facility] [address] [facility] [address] [facility] CBC LEUKOCYTES [#/VOLUME] IN BLOOD BY AUTOMATED COUNT 5.67 10*3/uL 4.50 - 11.00 05/25 Specimen Type: BLOOD No comment entered. Ordering Provider: SAILAJA MOMIN Report Released Date/Time: May 25, 2025 01:41 PM Reporting Lab: [facility] [address] [facility] [address] Performing Lab: [facility] [address] [facility] [address] [facility] CBC ERYTHROCYT ES [#/VOLUME] IN BLOOD BY AUTOMATED COUNT 4.56 10*6/uL 4.23 - 5.66 05/25 Specimen Type: BLOOD No comment entered. Ordering Provider: SAILAJA MOMIN Report Released Date/Time: May 25, 2025 01:41 PM Reporting Lab: [facility] [address] [facility] [address] Performing Lab: [facility] [address] [facility] [address] [facility] CBC HEMOGLOBIN [MASS/VOLU ME] IN BLOOD 15.3 g/dL 12.8 - 17 05/25 Specimen Type: BLOOD No comment entered. Ordering Provider: SAILAJA MOMIN Report Released Date/Time: May 25, 2025 01:41 PM Reporting Lab: [facility] [address] [facility] [address] Performing Lab: [facility] [address] [facility] [address] [facility] CBC HEMATOCRIT [VOLUME FRACTION] OF BLOOD BY AUTOMATED COUNT 44.8 39.2 - 50.4 05/25 Specimen Type: BLOOD No comment entered. Ordering Provider: SAILAJA MOMIN Report Released Date/Time: May 25, 2025 01:41 PM Reporting Lab: [facility] [address] [facility] [address] Performing Lab: [facility] [address] [facility] [address] [facility] CBC MCV [ENTITIC VOLUME] BY AUTOMATED COUNT 98.2 fL 82 - 99 05/25 Specimen Type: BLOOD No comment entered. Ordering Provider: SAILAJA MOMIN Report Released Date/Time: May 25, 2025 01:41 PM Reporting Lab: [facility] [address] [facility] [address] Performing Lab: [facility] [address] [address] [facility] CBC MCHC [MASS/VOLU ME] BY AUTOMATED COUNT 34.2 g/dL 30.8 - 35.1 05/25 Specimen Type: BLOOD No comment entered. Ordering Provider: SAILAJA MOMIN Report Released Date/Time: May 25, 2025 01:41 PM Reporting Lab: [facility] [facility] [address] [facility] [address] Performing Lab: [facility] [address] [address] [facility] CBC PLATELETS [#/VOLUME] IN BLOOD BY AUTOMATED COUNT 245 10*3/uL 140 - 360 05/25 Specimen Type: BLOOD No comment entered. Ordering Provider: SAILAJA MOMIN Report Released Date/Time: May 25, 2025 01:41 PM Reporting Lab: [facility] [address] [facility] [address] Performing Lab: [facility] [address] [address] [facility] CBC PLATELET MEAN VOLUME [ENTITIC VOLUME] IN BLOOD BY AUTOMATED COUNT 10.0 fL 9.2 - 12.4 05/25 Specimen Type: BLOOD No comment entered. Ordering Provider: SAILAJA MOMIN Report Released Date/Time: May 25, 2025 01:41 PM Reporting Lab: [facility] [address] [address] Performing Lab: [facility]RINFIR[facility]ITALN [address] [address] [facility]N [facility] CBC ERYTHROCYT E DISTRIBUTI ON WIDTH [RATIO] BY AUTOMATED COUNT 12.2 12.0 - 16.0 05/25 Specimen Type: BLOOD No comment entered. Ordering Provider: SAILAJA MOMIN Report Released Date/Time: May 25, 2025 01:41 PM Reporting Lab: [address] [address] Performing Lab: [facility]ITALRINFIRMARY [facility] HOSPITALN [address] [address] [facility] CBC MCH [ENTITIC MASS] BY AUTOMATED COUNT 33.6 pg 26.2 - 32.6 05/25 H Specimen Type: BLOOD No comment entered. Ordering Provider: SAILAJA MOMIN Report Released Date/Time: May 25, 2025 01:41 PM Reporting Lab: [address] [address] Performing Lab: [facility]ITALRINF[facility]ITALN [address] [address] [facility] HEMOGLOB IN A1C PANEL HEMOGLOBIN A1C/HEMOGL OBIN.TOTAL IN BLOOD 5.3 4.0 - 5.6 05/25 Specimen Type: BLOOD Comment: Values obtained from A1C measurement s can vary. For atypical A1C assays, a reported value of 7.0 could actually be between 6.72 and 7.28 if measured by a reference method. A reported value of 9.0 could actually be between 8.73 and 9.27. Ref: http://www. ngsp.org/CA Pdata.asp Ordering Provider: SAILAJA MOMIN Report Released Date/Time: May 25, 2025 01:41 PM Reporting Lab: [facility] [address] [facility] [address] Performing Lab: [facility] [facility] [address] [facility] [address] [facility] TSH THYROTROPI N [UNITS/VOL UME] IN SERUM OR PLASMA BY DETECTION LIMIT <= 0.005 MIU/L 2.37 u[IU]/mL 0.35 - 4.94 05/25 Specimen Type: SERUM No comment entered. Ordering Provider: SAILAJA MOMIN Report Released Date/Time: May 25, 2025 01:41 PM Reporting Lab: [facility] [address] [address] Performing Lab: [facility] [facility] [place] [address] [address] [facility] BASIC METABOLI C PANEL (non-fas ting) UREA NITROGEN [MASS/VOLU ME] IN SERUM OR PLASMA 20 mg/dL 8 - 26 05/25 Specimen Type: SERUM No comment entered. Ordering Provider: SAILAJA MOMIN Report Released Date/Time: May 25, 2025 01:41 PM Reporting Lab: [facility] [address] [address] Performing Lab: [facility] [address] [address] [facility] BASIC METABOLI C PANEL (non-fas ting) GLUCOSE [MASS/VOLU ME] IN SERUM OR PLASMA 93 mg/dL 65 - 100 05/25 Specimen Type: SERUM No comment entered. Ordering Provider: SAILAJA MOMIN Report Released Date/Time: May 25, 2025 01:41 PM Reporting Lab: [facility] [place] [address] [address] Performing Lab: [facility] [address] [address] [facility]OSPITALRTAYLOR HARDIN SECURE MEDICAL FACILITYTRN [facility] BASIC METABOLI C PANEL (non-fas ting) SODIUM [MOLES/VOL UME] IN SERUM OR PLASMA 141 mmol/L 136 - 145 05/25 Specimen Type: SERUM No comment entered. Ordering Provider: SAILAJA MOMIN Report Released Date/Time: May 25, 2025 01:41 PM Reporting Lab: [facility]ITALRINFIRMARY LTAC HOSPITALN [facility]USE[address] [address] Performing Lab: [facility]OSPITALRTAYLOR HARDIN SECURE MEDICAL FACILITYTRN [address] [address] [facility] BASIC METABOLI C PANEL (non-fas ting) POTASSIUM [MOLES/VOL UME] IN SERUM OR PLASMA 4.2 mmol/L 3.5 - 5.1 05/25 Specimen Type: SERUM No comment entered. Ordering Provider: SAILAJA MOMIN Report Released Date/Time: May 25, 2025 01:41 PM Reporting Lab: [facility]ITALRTAYLOR HARD[facility] MEDICAL FACILITYTRN [address] [address] Performing Lab: [facility]OSPITALRINFIRMARY LTAC HOSPITALN [facility]ITALUSE[address] [address] [facility]N [facility] BASIC METABOLI C PANEL (non-fas ting) CHLORIDE [MOLES/VOL UME] IN SERUM OR PLASMA 102 mmol/L 98 - 107 05/25 Specimen Type: SERUM No comment entered. Ordering Provider: SAILAJA MOMIN Report Released Date/Time: May 25, 2025 01:41 PM Reporting Lab: [facility]ITALRTAYLOR [facility]ARD[facility] FACILITYTRN [facility]USE[address] [address] Performing Lab: [facility]PITALRINFIRMARY LTAC HOSPITALN [facility]ITALUSE[address] [address] [facility]N [facility]USE [facility] BASIC METABOLI C PANEL (non-fas ting) CARBON DIOXIDE, TOTAL [MOLES/VOL UME] IN SERUM OR PLASMA 30 meq/L 23 - 31 05/25 Specimen Type: SERUM No comment entered. Ordering Provider: SAILAJA MOMIN Report Released Date/Time: May 25, 2025 01:41 PM Reporting Lab: [place] [facility] [place] [address] [address] Performing Lab: [place] [facility]ITALUSETS [address] [address] [facility]ITALRL WSTRN [facility] BASIC METABOLI C PANEL (non-fas ting) CALCIUM [MASS/VOLU ME] IN SERUM OR PLASMA 9.7 mg/dL 8.8 - 10 05/25 Specimen Type: SERUM No comment entered. Ordering Provider: SAILAJA MOMNI Report Released Date/Time: May 25, 2025 01:41 PM Reporting Lab: [place] [facility]ITALUSETS [address] [address] Performing Lab: [place] [facility]ITALUSE[address] [address] [facility] HOSPITALRL TRN [facility]USE [facility] BASIC METABOLI C PANEL (non-fas ting) CREATININE [MASS/VOLU ME] IN SERUM OR PLASMA 0.95 mg/dL 0.72 - 1.25 05/25 Specimen Type: SERUM No comment entered. Ordering Provider: SAILAJA MOMIN Report Released Date/Time: May 25, 2025 01:41 PM Reporting Lab: [place] [facility]ITALUSETS [address] [address] Performing Lab: [place] [facility]ITALUSETS [address] [address] [facility] HOSPITALRL TRN [facility]USE [facility] BASIC METABOLI C PANEL (non-fas ting) GLOMERULAR FILTRATION RATE/1.73 SQ M.PREDICTE D [VOLUME RATE/AREA] IN SERUM, PLASMA OR BLOOD BY CREATININE -BASED FORMULA (CKD-EPI 2020) 81 mL/min 60 05/25 Specimen Type: SERUM No comment entered. Ordering Provider: SAILAJA MOMIN Report Released Date/Time: May 25, 2025 01:41 PM Reporting Lab: [place] [facility]ITALUSETS [address] [address] Performing Lab: [facility] [place] [facility] [address] [facility] [address] [facility] HOSPITALRL [facility]N [facility] LIVER FUNCTION PROTEIN [MASS/VOLU ME] IN SERUM OR PLASMA 7.1 g/dL 6.4 - 8.3 05/25 Specimen Type: SERUM No comment entered. Ordering Provider: SAILAJA MOMIN Report Released Date/Time: May 25, 2025 01:41 PM Reporting Lab: [facility]OSPITALRL TRN [facility]ITALUSE[facility] [address] [facility] [address] Performing Lab: [facility]OSPITALRL TRN [facility]ITALUSEST[facility] [address] [facility] [address] [facility]ITALN [facility] LIVER FUNCTION ALBUMIN [MASS/VOLU ME] IN SERUM OR PLASMA BY BROMOCRESO L PURPLE (BCP) DYE BINDING METHOD 4.6 g/dL 3.2 - 4.6 05/25 Specimen Type: SERUM No comment entered. Ordering Provider: SAILAJA MOMIN Report Released Date/Time: May 25, 2025 01:41 PM Reporting Lab: [facility]PITALRTAYLOR HARDIN SECURE MEDICAL FACILITYTRN [facility]ITALUSEST[facility] [address] [facility] [address] Performing Lab: [facility]OSPITALRL TRN [facility]ITALUSEST[facility] [address] [facility] [address] [facility]ITALN [facility] LIVER FUNCTION ALKALINE PHOSPHATAS E [ENZYMATIC ACTIVITY/V OLUME] IN SERUM OR PLASMA 85 U/L 40 - 150 05/25 Specimen Type: SERUM No comment entered. Ordering Provider: SAILAJA MOMIN Report Released Date/Time: May 25, 2025 01:41 PM Reporting Lab: [facility]OSPITALRL TRN [facility]ITALUSE[facility] [address] [facility] [address] Performing Lab: [facility]OSPITALRL TRN [facility]ITALUSEST[facility] [address] [facility] [address] [facility]N [facility] LIVER FUNCTION ASPARTATE AMINOTRANS FERASE [ENZYMATIC ACTIVITY/V OLUME] IN SERUM OR PLASMA BY WITH P-5'-P 21 U/L 5 - 34 05/25 Specimen Type: SERUM No comment entered. Ordering Provider: SAILAJA MOMIN Report Released Date/Time: May 25, 2025 01:41 PM Reporting Lab: [facility] [place] [facility] [address] [facility] [address] Performing Lab: [facility] [place] [facility] [address] [facility] [address] [facility] LIVER FUNCTION ALANINE AMINOTRANS FERASE [ENZYMATIC ACTIVITY/V OLUME] IN SERUM OR PLASMA BY WITH P-5'-P 17 U/L 0 - 55 05/25 Specimen Type: SERUM No comment entered. Ordering Provider: SAILAJA MOMIN Report Released Date/Time: May 25, 2025 01:41 PM Reporting Lab: [facility] [place] [facility] [address] [facility] [address] Performing Lab: [place] [facility] [place] [facility] [address] [facility] [address] [facility]ITALRL WSTRN [facility] LIVER FUNCTION BILIRUBIN. TOTAL [MASS/VOLU ME] IN SERUM OR PLASMA 0.3 mg/dL 0.2 - 1.2 05/25 Specimen Type: SERUM No comment entered. Ordering Provider: SAILAJA MOMIN Report Released Date/Time: May 25, 2025 01:41 PM Reporting Lab: [facility] [place] [facility] [address] [facility] [address] Performing Lab: [facility] [place] [facility] [address] [facility] [address] [place] [facility] LIPID PANEL, NON FASTING CHOLESTERO L [MASS/VOLU ME] IN SERUM OR PLASMA 179 mg/dL 05/25 Specimen Type: SERUM No comment entered. Ordering Provider: SAILAJA MOMIN Report Released Date/Time: May 25, 2025 01:41 PM Reporting Lab: [facility] [place] [facility] [address] [facility] [address] Performing Lab: [facility] [place] [facility] [address] [facility] [address] [facility] [place] [facility] LIPID PANEL, NON FASTING TRIGLYCERI DE [MASS/VOLU ME] IN SERUM OR PLASMA 125 mg/dL 0 - 150 05/25 Specimen Type: SERUM No comment entered. Ordering Provider: SAILAJA MOMIN Report Released Date/Time: May 25, 2025 01:41 PM Reporting Lab: [facility]ITALRTAYLOR HARD[facility]URE MEDICAL FACILITYTRN [facility]USE[address] [address] Performing Lab: [facility]OSPITALRINFIRMARY LTAC HOSPITALN [facility]ITALUSE[address] [address] [facility]ITALRINFIRMARY LTAC HOSPITALN [facility]USE [facility] LIPID PANEL, NON FASTING CHOLESTERO L IN LDL [MASS/VOLU ME] IN SERUM OR PLASMA BY CALCULACLAUDINE N 113 mg/dL 0 - 129 05/25 Specimen Type: SERUM No comment entered. Ordering Provider: SAILAJA MOMIN Report Released Date/Time: May 25, 2025 01:41 PM Reporting Lab: [facility]N [address] [address] Performing Lab: [facility]PITALRINFIRMARY LTAC HOSPITALN [facility]ITALUSE[address] [address] [facility]N [facility] LIPID PANEL, NON FASTING CHOLESTERO L.TOTAL/CH OLESTEROL IN HDL [MASS RATIO] IN SERUM OR PLASMA 4.4 05/25 Specimen Type: SERUM No comment entered. Ordering Provider: SAILAJA MOMIN Report Released Date/Time: May 25, 2025 01:41 PM Reporting Lab: [facility]ITALRTAYLOR HARD[facility] MEDICAL FACILITYTRN [facility]USE[address] [address] Performing Lab: [facility]ITALRL TRN [facility]ITALUSE[address] [address] [facility]ITALRINFIRMARY LTAC HOSPITALN [facility]USE [facility] LIPID PANEL, NON FASTING CHOLESTERO L IN HDL [MASS/VOLU ME] IN SERUM OR PLASMA 41 mg/dL 40 05/25 Specimen Type: SERUM No comment entered. Ordering Provider: SAILAJA MOMIN Report Released Date/Time: May 25, 2025 01:41 PM Reporting Lab: [facility]PITALRINFIRMARY LTAC HOSPITALN [facility]ITALUSE[address] [address] Performing Lab: [facility]ITALRL [place] [facility] [address] [facility] [address] [facility]ITALRINFIRMARY LTAC HOSPITALN [facility] VITAMIN B12 COBALAMIN (VITAMIN B12) [MASS/VOLU ME] IN SERUM OR PLASMA 766 pg/mL 213 - 816 05/25 Specimen Type: SERUM No comment entered. Ordering Provider: SAILAJA MOMIN Report Released Date/Time: May 25, 2025 01:41 PM Reporting Lab: [facility]ITALRTAYLOR [facility]ARD[facility] MEDICAL FACILITYTRN [place] [facility] [address] [facility] [address] Performing Lab: [facility]OSPITALRINFIRMARY LTAC HOSPITALN [facility]ITALUSEST[facility] [address] [facility] [address] [facility]N [facility]USE [facility] VITAMIN D (25-OH) 25-HYDROXY VITAMIN D3+25-HYDR OXYVITAMIN D2 [MASS/VOLU ME] IN SERUM OR PLASMA 45.8 ng/mL 20 - 50 05/25 Specimen Type: SERUM No comment entered. Ordering Provider: SAILAJA MOMIN Report Released Date/Time: May 25, 2025 01:41 PM Reporting Lab: [facility]PITALRINFIRMARY LTAC HOSPITALN [facility]USE[facility] [address] [facility] [address] Performing Lab: [facility]PITALRTAYLOR HARD[facility] SECURE MEDICAL FACILITYTRN [facility]ITALUSEST[facility] [address] [facility] [address] [facility]ITALRINFIRMARY LTAC HOSPITALN [facility] MAGNESIU M MAGNESIUM [MASS/VOLU ME] IN SERUM OR PLASMA 2.2 mg/dL 1.6 - 2.6 05/25 Specimen Type: SERUM No comment entered. Ordering Provider: SAILAJA MOMIN Report Released Date/Time: May 25, 2025 01:41 PM Reporting Lab: [facility]ITALRTAYLOR [facility]ARD[facility] MEDICAL FACILITYTRN [facility]OSPITALUSETS [facility] [address] [facility] [address] Performing Lab: [facility]PITALRINFIRMARY LTAC HOSPITALN [facility]ITALUSE[address] [address] [facility]N [facility]USE [facility] Vital Signs Combined list of inpatient and outpatient Vital Signs from Department of Defense and Veterans Affairs, ranging from 12 months to all on record, depending upon the facility. Vital Sign Value Date Comments Source SYSTOLIC BLOOD PRESSURE 165 05/25/20 12:49:37 [facility] DIASTOLIC BLOOD PRESSURE 76 025 12:49:37 [facility] PULSE OXIMETRY 99 % 05/25/2025 12:49:37 [facility] WEIGHT 152 05/25/2025 12:49:37 [facility] BMI 22 kg/m2 05/25/2025 12:49:37 [facility] PAIN 0 05/25/2025 12:49:37 [facility] HEIGHT 70 05/25/2025 12:49:37 [facility] TEMPERATURE 98.1 05/25/2025 12:49:37 [facility] PULSE 69 05/25/2025 12:49:37 [facility] RESPIRATION 20 05/25/2025 12:49:37 [facility] SYSTOLIC BLOOD PRESSURE 160 05/22/20 11:09:01 [facility] DIASTOLIC BLOOD PRESSURE 83 025 11:09:01 [facility] PULSE OXIMETRY 98 % 05/22/2025 11:09:01 [facility] WEIGHT 151 05/22/2025 11:09:01 [facility] BMI 22 kg/m2 05/22/2025 11:09:01 [facility] PAIN 1 05/22/2025 11:09:01 [facility] HEIGHT 70 05/22/2025 11:09:01 [facility] TEMPERATURE 97.3 05/22/2025 11:09:01 [facility] PULSE 71 05/22/2025 11[facility]09:01 [facility] RESPIRATION 20 05/22/2025 11:09:01 [facility] Encounters Combined list of: 1) Encounters from Department of Veterans Affairs facilities going backup to the last 18 months, not all [facility] inpatient encounters are included; 2) Encounters from the Department of [facility] facilities going backup to 280 months. Location Location Details Encounter Type Encounter Number Reason For Visit Attending Provider ADM Date DC Date Status Disposition Source [facility] Outpatient Encounter [id number] 10/16 [facility] [facility] OFF/OP EST FEBRUARY X REQ PHY/QHP [id number] Diagnos is: ICD-10- CM I10 Essenti al (primar y) hyperte nsHUMA Mcintyre 05/22 [place] [facility] [place] [facility] Outpatient [facility]counter [id number] 05/25 [place] [facility] [place] [facility] [place] Outpatient Encounter [id number] Malgorzata MOMIN 05/25 [place] [facility] [place] [facility] [place] Outpatient Encounter [id number] 05/25 [place] [facility] [place] [facility] Social History Combined list of available smoking, tobacco, and other social history from Department of Defense and Veterans Affairs facilities. Social History Type Response Date Comment Sourc e Tobacco smoking status NHIS VA-TOBACCO NEVER USED CIGARETTES 05/22/2025 [place] [place] [facility] History of tobacco use VA-TOBACCO NEVER USED OTHER TYPE 05/22/2025 [facility] [place] [facility] Plan of Care List of future care activities from Department of Veterans Affairs facilities. Additional future care activities may be listed in the Assessment and Plan section. Date/Time Care Activity Care Activity Detail Facili ty 05/25/2025 Consult Order NEUROPSYCHOL [facility]EM[facility]TH [facility] OUTPT Cons Dimensional Inspector's Choice [facility] [place] [facility] Advance Directives List of completed, amended, or rescinded Advance Directives on record at Department of [facility] facilities. An actual copy of the Directive is not included. Date Advance Directive Provider Source 05/25/2025 ADVANCE DIRECTIVE KALEY PARKER [place] [facility]
--- NOTE | 2025-05-31 09:43 | MHC.OFFVIS ---
Vital Signs 05/31/25 09:52 Weight 152 lb BP 132/62 Blood Pressure Location Rt brachial Position Sitting Pulse 66 Intake Visit Reasons: s/p RIH w/mesh Intake Note: Patient here s/p repair of a large right inguinal hernia with mesh. Patient c/o: mild discomfort at times. Steri strips removed without incident. Only took one pill of the oxycocone. Surgery: 05-17-2025 Clothes Shaker Required: No Accompanied by: spouse Nicole Allergies sulfamethoxazole (From Bactrim) Allergy (Severe, Verified 05/31/25 09:52) hives trimethoprim (From Bactrim) Allergy (Severe, Verified 05/31/25 09:52) hives HPI HPI s/p RIH w/mesh: Details: He had undergone repair of a right inguinal hernia with mesh last 05/17/2025 and is here for a postop visit. He says he feels well overall. He denies any significant pain. [facility] Medical History Right groin hernia (05/17/25) Skin cancer Chronic constipation BPH (benign prostatic hyperplasia) Hyperlipidemia TIA (transient ischemic attack) Reducible right inguinal hernia Surgical History Hx of vasectomy History of tonsillectomy Social History Are you a primary healthcare economics consultant to a significant other at home: No Do you presently have visiting nurse or other home services: No Patient Tobacco Use Status: Never used Tobacco Tobacco use type: Cigarette Years Smoked: 2 Review of Systems Const Denies chills and Denies fever(s) Card Denies chest pain GI Denies abdominal pain Physical Exam Const General: comfortable and no acute distress Resp Effort & Inspection: normal respiratory effort GI Other: Right inguinal hernia repair site well healed, not infected, repair intact Assessment & Plan Assessment & Plan (1) Reducible right inguinal hernia: Code(s): K40.90 - Unilateral inguinal hernia, without obstruction or gangrene, not specified as recurrent Category: Medical Plan: Status post repair of right inguinal hernia with mesh. He is doing very well. The repair site is intact and is well healed. I advised him to avoid lifting anything more than 20 lb for at least 2 more weeks. He can otherwise follow up on a p.r.n. basis. Coding Level of Care Code Global (17674) Diagnoses Reducible right inguinal hernia K40.90
[2025-05-31 09:52] VITALS: BP 132/62; PULSE 66
--- OUTSIDE RECORDS SUMMARY | 2025-05-31 10:50 | XMS_ITS | Encounter Summary ---
Author Name [facility] [place] Organization [facility] [facility] [place] Address [address] [place] [id number] Support Name Relationship Address Phone KALEY PRYOR Next of Kin [address] [place] [address] [employer] PRYORLIBRA Lee Emergency Contact [address] [place] [address] Insurance Providers: All historical and [...] section includes the information on record at [place] for the Encounter. Date/Time Encounter Type Encounter Description Reason Pro vider Source IHE Encounter Template Text not used by VA Advance Directives: All historical and current Section Date Range: From patient's date of to the date document was created. This section includes ALL of a patient's completed or amended [place] Advance and Rescinded Directives. The entries below indicate that a directive exists for the patient, but an actual copy is not included with this document. The data comes from all [place] facilities. Date Advance Directives Provider Source May 25, 2025 ADVANCE DIRECTIVE KALEY PARKER [place] [facility]
--- OUTSIDE RECORDS SUMMARY | 2025-05-31 10:51 | XMS_ITS | Clinical Summary ---
Author Organization [facility] Address [address] [place] [address] Phone Care Team Providers Care Fiscal Technician Name Role Phone Tonjamicaela Kenneth Jesus DOHERTY Primary Care Provider [phone] Social History Tobacco Use Types Packs/Day Years [...] file Medical Devices Not on file Insurance [facility] MEDICARE REPLACEMENT [facility] MEDIC[facility] REPLACEMENT [facility] MEDIC[facility]PLACEMENT [facility] MEDICARE REPLACEMENT [facility] MEDICARE REPLACEMENT [facility] MEDICARE [facility]PLACEMENT [facility] MEDICARE REPLACEMENT [facility] MEDICARE REPLACEMENT [facility] MEDICARE REPLACEMENT Care Teams Fiscal Technician Relationship Specialty Start Date End Date Kenneth Blanton DO [email or web address] PCP - General Internal Medicine 09/18/20 Additional Source Comments The information contained in this document represents components of the legal health record. It is not the complete legal health record.[facility]
--- OUTSIDE RECORDS SUMMARY | 2025-05-31 10:51 | XMS_ITS | Clinical Summary ---
Author Organization [employer] Address [address] [facility] [address] [place] [address] Care Team Providers Care Research Hydrologist Name Role Phone Unavailable Primary Care Provider [...] patient's age to complete this topic Insurance [facility] [place] [address]
--- OUTSIDE RECORDS SUMMARY | 2025-05-31 10:51 | XMS_ITS | Encounter Summary ---
Author Name [facility] [place] [facility] [facility] [place] Address [address] [place] [id number] Support Name Relationship Address Phone KALEY PRYOR Next of Kin [address] [place] [address] [employer] PRYORLIBRA Lee Emergency Contact [address] [place] [address] Insurance Providers: All historical and [...] section includes the information on record at [place] for the Encounter. Date/Time Encounter Type Encounter [...] this document. The data comes from all [place] facilities. Date Advance Directives Provider Source May 25, 2025 ADVANCE DIRECTIVE KALEY PARKER [place] [facility]
== END 2025-05-31 10:02 | disposition home or self-care (01) ==
PROVIDERS: PCP Internal Medicine; Visit Provider Surgery
DX: K40.90 Unilateral inguinal hernia, without obstruction or gangrene, not specified as recurrent (principal)
CPT/HCPCS: 99024

== ENCOUNTER → 2025-05-31 09:42 | Outpatient (BNVA) | payer MEDICARE, SELFPAY | PROVIDERS: PCP Internal Medicine; Visit Provider Surgery | DX: Z48.815 Encounter for surgical aftercare following surgery on the digestive system (principal); Z98.890 Other specified postprocedural states | CPT/HCPCS: 99212 ==

== ENCOUNTER 2025-06-25 08:40 | Outpatient (AMB) | payer MEDICARE, SELFPAY ==
--- NOTE | 2025-06-25 08:40 | MHC.OFFVIS ---
Vital Signs 06/25/25 08:52 Weight 150 lb BP 165/82 H Blood Pressure Location Lt brachial Position Sitting Pulse 63 Intake Visit Reasons: possible hernia on other side from sneezing Intake Note: Patient call to schedule today's appointment concerned w/ possible hernia on left side. Patient c/o: pain on RLQ after sneezing, reports no changes to bowel habits, reports no nausea or vomiting. Hx: repair of a large right inguinal hernia with mesh on 05-17-2025w/ Dr. Doe. Assembling Fabricator Required: No Accompanied by: Other Relationship Allergies sulfamethoxazole (From Bactrim) Allergy (Severe, Verified 06/25/25 08:54) hives trimethoprim (From Bactrim) Allergy (Severe, Verified 06/25/25 08:54) hives Medication List - Last Reconciled 06/25/25 by Levy Amor MD aspirin 81 mg PO QAM coenzyme Q10 (Co Q-10) 100 mg PO QAM ibuprofen 600 mg PO Q6H PRN L. acidophilus-L. rhamnosus 15 billion cell (Probiotic) 1 cap PO DAILY magnesium oxide 300 mg PO QAM tamsulosin 0.4 mg PO BEDTIME turmeric 1,600 mg PO DAILY HPI HPI possible hernia on other side from sneezing: Details: 79-year-old male here because of the reducible mass in the left groin. He said he had noticed this about 2 weeks ago when he had a ?explosive? sneezing fit. This mass seems to be more obvious when he is standing up or doing physical exertion. He said that this has not been painful He had a repair of a right inguinal hernia with mesh last 05/17/2025. He did well after this. He denies GI complaints. He says he is in good health overall. [facility] Medical History (Updated 06/25/25 @ 09:12 by Levy Amor MD) Reducible left inguinal hernia Right groin hernia (05/17/25) Skin cancer Chronic constipation BPH (benign prostatic hyperplasia) Hyperlipidemia TIA (transient ischemic attack) Reducible right inguinal hernia Surgical History Hx of vasectomy History of tonsillectomy Social History Are you a primary care attendant to a significant other at home: No Do you presently have visiting nurse or other home services: No Patient Tobacco Use Status: Never used Tobacco Tobacco use type: Cigarette Years Smoked: 2 Review of Systems Const Denies chills and Denies fever(s) Card Denies chest pain, Denies dyspnea and Denies dyspnea on exertion Resp Denies cough, Denies dyspnea and Denies dyspnea on exertion GI Denies hematochezia and Denies change in bowel habits Denies hematuria and Denies difficulty urinating Musc Denies back pain and Denies limited range of motion Neuro Denies focal weakness and Denies convulsions Psych Denies depression and Denies mood swings Physical Exam Vital Signs: Last Vital Signs Pulse 63 06/25/25 08:52 BP 165/82 H 06/25/25 08:52 Const General: comfortable and no acute distress Orientation/consciousness: patient oriented x3 Neck Neck: Yes no lymphadenopathy Resp Auscultation: clear to auscultation bilaterally Cardio Rhythm: regular rhythm GI Other: Reducible left inguinal hernia, more obvious with Valsalva, right inguinal hernia repair site well healed and intact Palpation (GI): Soft to palpation, nontender and no guarding Neuro General: patient oriented x3 Assessment & Plan Assessment & Plan (1) Reducible left inguinal hernia: Code(s): K40.90 - Unilateral inguinal hernia, without obstruction or gangrene, not specified as recurrent Category: Medical Plan: He now has a reducible left inguinal hernia. He is thinking having this repaired. I reviewed with him the technique of repair with mesh. I explained the risks including but not limited to bleeding, infections, injury to bowel the vas deferens, recurrence, as well as the benefits and alternatives He understands and says he plans to schedule this at some point. He will call the office to arrange for this as they usually go to [place] for the winter. Coding Level of Care Code Est Pt Level 3 (64977) Diagnoses Reducible left inguinal hernia K40.90
[2025-06-25 08:52] VITALS: BP 165/82; PULSE 63
--- OUTSIDE RECORDS SUMMARY | 2025-06-25 10:01 | XMS_ITS | Clinical Summary ---
Author Organization [facility] Address [address] [place] [phone] Phone Care Team Providers Care Warp Bleaching Vat Tender Name Role Phone Tonjamicaela Kenneth Jesus DOHERTY Primary Care Provider [phone] Social History Tobacco Use Types Packs/Day Years [...] file Medical Devices Not on file Insurance [facility] MEDICARE REPLACEMENT [facility] MEDICARE REPLACEMENT [facility]IC[facility]ICARE [facility]PL[facility]ICARE [facility]PL[facility] MEDICARE REPLACEMENT [facility] MEDICARE REPL[facility]EMENT [facility] MEDICARE REPLACEMENT [facility] MEDICARE REPLACEMENT Care Teams Warp Bleaching Vat Tender Relationship Specialty Start Date End Date Kenneth Blanton DO [email or web address] PCP - General Internal Medicine 09/18/20 Additional Source Comments The information contained in this document represents components of the legal health record. It is not the complete legal health record.[facility]
--- OUTSIDE RECORDS SUMMARY | 2025-06-25 10:01 | XMS_ITS | Clinical Summary ---
Author Organization [employer] Address [address] [facility] [address] [place] [address] Care Team Providers Care Stock Clerk Self Service Store Name Role Phone Unavailable Primary Care Provider [...] COVID-19 Vaccine (1 - 2023-2 5 season) 2025 Influenza Vaccine (#1) 2025 Lipid Panel 10/31/2026 [...] patient's age to complete this topic Insurance [facility] [place] [address]
== END 2025-06-25 09:28 | disposition home or self-care (01) ==
LOC: HO.HGS 08:40
PROVIDERS: PCP Internal Medicine Endocrinology, Diabetes & Metabolism; Visit Provider Surgery
DX: K40.90 Unilateral inguinal hernia, without obstruction or gangrene, not specified as recurrent (principal)
CPT/HCPCS: 99024

== ENCOUNTER → 2025-06-25 08:40 | Outpatient (BNVA) | payer MEDICARE, SELFPAY | PROVIDERS: PCP Internal Medicine Endocrinology, Diabetes & Metabolism; Visit Provider Surgery | DX: K40.90 Unilateral inguinal hernia, without obstruction or gangrene, not specified as recurrent (principal) | CPT/HCPCS: 99212 ==

== ENCOUNTER 2025-07-20 07:09 | Day surgery (SDC) | payer MEDICARE, SELFPAY ==
--- OUTSIDE RECORDS SUMMARY | 2025-07-02 13:43 | XMS_ITS | Clinical Summary ---
Author Organization [employer] Address [address] [facility] [address] [place] [address] Care Team Providers Care Procedures Rn Name Role Phone Unavailable Primary Care Provider [...] patient's age to complete this topic Insurance [facility] MEDICARE REPLACEMENT
[2025-07-17 15:33] VITALS: BMI 21.5
--- NOTE | 2025-07-18 09:18 | HO.ANESPROP2 ---
Documented by User: Elvira Gordon NP 07/18/25 09:19 HPI - Anesthesia Eval Consult details Narrative: 80yo M for Left Hernia Inguinal Reducible with mesh s/p Right inguinal hernia repair 05/2025 with [place] 4 PAT assess prior to right side: No recent illness No CP/SOB with walking golf course 5 days weekly ? TIA vs migraine 2019 Has followed with [facility] vascular for surveillence carotid US (neg), last office visit 04/2025 - now prn f/u only PMFSH Active Problems Active Problems: All Active Problems History of skin cancer (Acute) Enlarged prostate (Acute) Reducible left inguinal hernia (Acute) Reducible right inguinal hernia (Acute) Past Medical History Medical History Reducible left inguinal hernia Skin cancer Chronic constipation BPH (benign prostatic hyperplasia) Hyperlipidemia TIA (transient ischemic attack) Family History Family history of problems with anesthesia: No Surgical History Surgical History Hx of right inguinal hernia repair Hx of vasectomy History of tonsillectomy History of Problems with Anesthesia: No (Only had tonsils as child) Social History Social History Are you a primary home care nurse to a significant other at home: No Do you presently have visiting nurse or other home services: No Patient Tobacco Use Status: Former Tobacco user Tobacco use type: Cigarette Years Smoked: 2 Use of substances other than those prescribed or required for medical reasons: No Have you been hit, kicked, punched, or otherwise hurt by someone within the past year? If so, by whom?: No Spiritual Healthcare Practices: no Confucianist Healthcare Practices: no Cultural Healthcare Practices: no Are you DNR?: No Advance Directives on File: No Poor oral hygiene: No Meds Allergies Allergy/AdvReac Type Severity Reaction Status Date / Time sulfamethoxazole (From Allergy Severe hives Verified 07/20/25 08:26 Bactrim) trimethoprim (From Bactrim) Allergy Severe hives Verified 07/20/25 08:26 Home Medications ?Medication ?Instructions ?Recorded ?Confirmed ?Last Taken ?Type aspirin 81 mg tablet 81 mg PO QAM 04/19/25 07/20/25 07/17/25 History tamsulosin 0.4 mg capsule 0.4 mg PO BEDTIME 04/19/25 07/20/25 07/19/25 History Lactobacillus acidophilus and 1 cap PO DAILY 05/10/25 07/20/25 Unknown History rhamnosus 15 billion cell capsule (Probiotic) coenzyme Q10 100 mg capsule (Co 100 mg PO QAM 05/10/25 07/20/25 Unknown History Q-10) magnesium oxide 300 mg PO QAM 05/10/25 07/20/25 Unknown History turmeric 400 mg capsule 1,600 mg PO DAILY 05/10/25 07/20/25 Unknown History Exam Height,Weight and Vital Signs: Height 5 ft 10 in Weight 68.039 kg Narrative Narrative: Carotid US 03/2025 Summary: Right Side: 1-49% stenosis in the Internal Carotid Artery, previously 60/15 cm/s. Antegrade flow in the Vertebral Artery. Multiphasic flow is seen in the Subclavian Artery. Left Side: 1-49% stenosis in the Internal Carotid Artery, previously 70/19 cm/s. Antegrade flow in the Vertebral Artery. Multiphasic flow is seen in the Subclavian Artery. Comparison is made to the previous ultrasound study dated 03/06/24. Assessment and Plan Assessment Anesthesia Assessment: Chart Reviewed Final Anesthetic Review Family History of Problems with Anesthesia: No History of Problems with Anesthesia: No (Only had tonsils as child) Documented by User: Kenroy Novak MD 07/20/25 08:58 [facility] Past Medical History Medical History Reducible left inguinal hernia Skin cancer Chronic constipation BPH (benign prostatic hyperplasia) Hyperlipidemia TIA (transient ischemic attack) Surgical History Surgical History Hx of right inguinal hernia repair Hx of vasectomy History of tonsillectomy Social History Social History Are you a primary home care nurse to a significant other at home: No Do you presently have visiting nurse or other home services: No Patient Tobacco Use Status: Former Tobacco user Tobacco use type: Cigarette Years Smoked: 2 Use of substances other than those prescribed or required for medical reasons: No Have you been hit, kicked, punched, or otherwise hurt by someone within the past year? If so, by whom?: No Spiritual Healthcare Practices: no Confucianist Healthcare Practices: no Cultural Healthcare Practices: no Are you DNR?: No Advance Directives on File: No Poor oral hygiene: No Meds Allergies Allergy/AdvReac Type Severity Reaction Status Date / Time sulfamethoxazole (From Allergy Severe hives Verified 07/20/25 08:26 Bactrim) trimethoprim (From Bactrim) Allergy Severe hives Verified 07/20/25 08:26 Home Medications ?Medication ?Instructions ?Recorded ?Confirmed ?Last Taken ?Type aspirin 81 mg tablet 81 mg PO QAM 04/19/25 07/20/25 07/17/25 History tamsulosin 0.4 mg capsule 0.4 mg PO BEDTIME 04/19/25 07/20/25 07/19/25 History Lactobacillus acidophilus and 1 cap PO DAILY 05/10/25 07/20/25 Unknown History rhamnosus 15 billion cell capsule (Probiotic) coenzyme Q10 100 mg capsule (Co 100 mg PO QAM 05/10/25 07/20/25 Unknown History Q-10) magnesium oxide 300 mg PO QAM 05/10/25 07/20/25 Unknown History turmeric 400 mg capsule 1,600 mg PO DAILY 05/10/25 07/20/25 Unknown History Exam Exam Date and Time: 07/20/25 Airway Mallampati Class: II TM Dist: >3cm Neck ROM: Full Heart: rrr Lungs: ctab vesicular Assessment and Plan Assessment Anesthesia Assessment: Anesthesia Plan Discussed and Chart Reviewed Final Anesthetic Review NPO: Yes ASA Class: II Final Preanesthetic Review: No Changes in Pt Med Stat, Meds/Allgs Chart Reviewed, Consent Obtained/Reviewed and Anes Risks/Benef Reviewed Patient Risk: Low Procedure Risk: Low Anesthetic Plan Anesthetic Plan: [place] Disposition: Standard PACU
[2025-07-20 08:07] VITALS: BMI 21.3
[2025-07-20 08:10] VITALS: BP 141/77; PULSE 76; RESP 18; TEMP 36.8; O2SAT 98
--- NOTE | 2025-07-20 08:20 | MHC.SHP ---
Pre-Procedural Eval Section A - 24 Hr Update-Section A only Date of Service: 07/20/25 The patient is an INPATIENT: No Changes since office visit: No Cold of Flu in the past 2 weeks, No New Medical Problems, No Changes in Medication and No Patient answered all questions The patient has been examined within 24 hours of the surgical procedure. The History & Physical has been completed within 30 days and I have reviewed it.: Yes Section B - Complete if H&P > 30 days Chief Complaint: Unilateral inguinal hernia, without obstruction Allergies: Allergies Allergy/AdvReac Type Severity Reaction Status Date / Time sulfamethoxazole (From Allergy Severe hives Verified 06/25/25 08:54 Bactrim) trimethoprim (From Bactrim) Allergy Severe hives Verified 06/25/25 08:54 Plan I have reviewed the history and physical and performed a pertinent physical examination on my patient. No changes have occurred unless specified. Time Spent With Patient Time: Total time managing care of this patient today ____ minutes.
[2025-07-20] MEDS: Lactated Ringers 1,000 ML 100 ML IVCONT (08:34)
--- NOTE | 2025-07-20 09:45 | P.OP_ITS ---
Operative Note Operative Note Date of Service: 07/20/25 Narrative: Preop diagnosis: Left inguinal hernia, reducible Postop diagnosis: Left inguinal hernia reducible, indirect Procedure: Repair of a left inguinal hernia with mesh Surgeon: Levy Amor MD child care center assistant director: DUSTIN Thomas The patient is a 80-year-old male with a reducible mass in the left groin consistent with a left inguinal hernia. He understood the technique of the planned repair as well as the risks, benefits, and alternatives. He was brought to the operating room. He was placed supine under general anesthesia via endotracheal tube. The left groin was prepped and draped in the usual sterile fashion. A surgical time-out was done. The patient received cefazolin 2 g IV preoperatively . I infiltrated the planned line of incision with lidocaine 1%. I made the incision on the left inguinal hernia. This was carried down with electrocautery through the full-thickness of the skin subcutaneous fat. I was able to identify the external oblique aponeurosis. I bluntly dissected this and I was able to define the external ring. I made an incision on the aponeurosis and extended this inferomedially to connect with the external ring. The inguinal canal was therefore entered. I applied hemostats on the divided edges of the aponeurosis. I bluntly dissected the underside of the aponeurosis to create a pocket for the mesh. I was able to identify the spermatic cord and its contents. I passed a [place] drain around this cord and its contents and used this for retraction. The hernia which was fat containing was noted alongside this. I dissected the hernia contents off of the rest of the cord contents with a combination of blunt dissection and electrocautery until was able to define this through the defect. This hernia was going through the internal ring so this was an indirect hernia. I reduced this hernia sac through the internal ring. I reinforced the internal ring with a small-sized Prolene plug. The plug was secured to the shelving edge of the inguinal ligament laterally and the internal oblique superiorly and medially using its inner leaves. I identified the rest of the cord contents and protected the vas deferens during the dissection . I reinforced the rest of the floor of the canal with a keyhole mesh. The tails of the mesh were passed around the cord at the level of the internal ring with a Prolene 2-0 stitch. I flattened the mesh underneath the aponeurosis. I secured the mesh with Prolene 2-0 sutures to the pubic ramus inferomedially, the internal oblique medially as well as the shelving edge of the inguinal ligament laterally. I closed the external oblique aponeurosis over the mesh with a running Polysorb 2-0 stitch to re-create the external ring . I irrigated. I observed for hemostasis. Once hemostasis was confirmed, I reapposed the subcutaneous layer Polysorb 3-0 Prolene interrupted sutures. Skin closure was achieved with Polysorb 4-0 subcuticular running stitch. The area was infiltrated with Marcaine 0.5% for postop analgesia. Dressings were applied and the procedure was then completed The patient tolerated procedure well. There were no immediate complications. Initial and final counts of sponges and instruments were correct. Estimated blood loss was less than 20 cc. The patient was then transferred to the recovery room with stable vital signs.
[2025-07-20 09:58] VITALS: BP 122/51; PULSE 53; RESP 10; TEMP 36.3; O2SAT 100
[2025-07-20 10:03] VITALS: BP 117/60; PULSE 56; RESP 11; O2SAT 100
[2025-07-20 10:08] VITALS: BP 113/63; PULSE 56; RESP 11; O2SAT 99
[2025-07-20 10:13] VITALS: BP 111/73; PULSE 57; RESP 10; O2SAT 97
[2025-07-20 10:28] VITALS: BP 130/62; PULSE 64; RESP 14; TEMP 36.3; O2SAT 97
== END 2025-07-20 10:55 | disposition home or self-care (01) ==
PROVIDERS: PCP Internal Medicine; Visit Provider Surgery
PROC: (CPT 49505; principal; 2025-07-20 09:00)
DX: K40.90 Unilateral inguinal hernia, without obstruction or gangrene, not specified as recurrent (principal); Z85.828 Personal history of other malignant neoplasm of skin; K59.09 Other constipation; E78.5 Hyperlipidemia, unspecified; N40.0 Benign prostatic hyperplasia without lower urinary tract symptoms; Z86.73 Personal history of transient ischemic attack (TIA), and cerebral infarction without residual deficits; Z79.1 Long term (current) use of non-steroidal anti-inflammatories (NSAID); Z79.82 Long term (current) use of aspirin; Z79.899 Other long term (current) drug therapy; Z88.2 Allergy status to sulfonamides; Z98.890 Other specified postprocedural states; Z98.52 Vasectomy status; Z87.891 Personal history of nicotine dependence
CPT/HCPCS: 49505; C1781; J0131; J0690; J1100; J1171; J2003; J2371; J2405; J2704; J2795; J3010

== ENCOUNTER → 2025-07-20 07:09 | Outpatient (BNV) | payer MEDICARE, SELFPAY | PROVIDERS: PCP Internal Medicine; Visit Provider Surgery | DX: K40.90 Unilateral inguinal hernia, without obstruction or gangrene, not specified as recurrent (principal) | CPT/HCPCS: 49505 ==

== ENCOUNTER 2025-08-02 10:05 | Outpatient (AMB) | payer MEDICARE, SELFPAY ==
[2025-08-02 10:21] VITALS: BP 141/68; PULSE 75
--- NOTE | 2025-08-02 10:21 | MHC.OFFVIS ---
Vital Signs 08/02/25 10:21 Weight 152 lb BP 141/68 H Blood Pressure Location Lt brachial Position Sitting Pulse 75 Intake Visit Reasons: s/p LIH w/mesh Intake Note: Patient here s/p repair of a left inguinal hernia with mesh. Patient c/o: tenderness along incision. Denies oozing. Steri- strips fell off. Never took rx pain meds. Surgery (): 07-20-2025 Car Hop Required: No Accompanied by: spouse Nicole Allergies sulfamethoxazole (From Bactrim) Allergy (Severe, Verified 08/02/25 10:23) hives trimethoprim (From Bactrim) Allergy (Severe, Verified 08/02/25 10:23) hives HPI HPI s/p LIH w/mesh: Details: Mr. Gallegos is here today for wound check and follow up. He underwent left inguinal hernia repair with mesh on 07/20/[address] Amor. He tolerated the procedure well. He reported minimal pain following the procedure and did not take any percocet or anything else for pain. He feels well today with only some mild soreness. He is tolerating a solid diet. He is moving his bowels but does report some constipation and hard stools. He has no concerns. [facility] Medical History Reducible left inguinal hernia Skin cancer Chronic constipation BPH (benign prostatic hyperplasia) Hyperlipidemia TIA (transient ischemic attack) Surgical History (Updated 08/02/25 @ 13:14 by Eleanor Barboza PA-C) S/P left inguinal hernia repair (07/20/25) Hx of right inguinal hernia repair Hx of vasectomy History of tonsillectomy Social History Are you a primary assurance services manager health care to a significant other at home: No Do you presently have visiting nurse or other home services: No Comment: Counts correct Patient Tobacco Use Status: Former Tobacco user Tobacco use type: Cigarette Years Smoked: 2 Physical Exam Vital Signs: Last Vital Signs Pulse 75 08/02/25 10:21 BP 141/68 H 08/02/25 10:21 Const General: comfortable, no acute distress and alert Orientation/consciousness: patient oriented x3 Resp Effort & Inspection: normal respiratory effort GI Other: incision well approximated and clean appearing, mild underlying induration, no surrounding erythema Palpation (GI): Soft to palpation, nontender and no guarding Skin General skin exam: no rashes or lesions noted Neuro General: patient oriented x3 and moves all extremities Assessment & Plan Assessment & Plan (1) S/P left inguinal hernia repair: Onset Date: 07/20/25 Comment: Repair of a left inguinal hernia with mesh Levy Bautista Code(s): Z98.890 - Other specified postprocedural states; Z87.19 - Personal history of other diseases of the digestive system Category: Surgical Plan 80 year old male who underwent repair of left inguinal hernia with mesh on 07/20/[address] Amor. He tolerated the procedure well. His incision is well healed without evidence of infection, no evidence of hernia recurrence. It was recommended to avoid constipation and straining following his hernia repair and he was instructed to take a stool softener twice a day and add fiber supplementation. He was instructed to continue heavy lifting and strenuous activity restrictions for another month. He can follow up as needed if he develops concerns. Coding Level of Care Code Global (87734) Diagnoses S/P left inguinal hernia repair Z98.890; Z87.19
--- OUTSIDE RECORDS SUMMARY | 2025-08-02 12:08 | XMS_ITS | Clinical Summary ---
Author Organization [facility] Address [address] [place] [address] Phone Care Team Providers Care Education Research Analyst Name Role Phone Tonjamicaela Eknneth Jesus DOHERTY Primary Care Provider [phone] Social History Tobacco Use Types Packs/Day Years [...] file Medical Devices Not on file Insurance [facility] MEDICARE REPLACEMENT [facility] MEDICARE REPLACEMENT [facility] MEDICARE REPLACEMENT [facility] MEDICARE [facility]PLACEMENT [facility] MEDICARE REPLACEMENT [facility] MEDICARE [facility]PLACEMENT [facility] MEDICARE REPLACEMENT [facility] MEDICARE REPLACEMENT [facility] MEDICARE REPLACEMENT Care Teams Education Research Analyst Relationship Specialty Start Date End Date Kenneth Blanton DO [email or web address] PCP - General Internal Medicine 09/18/20 Additional Source Comments The information contained in this document represents components of the legal health record. It is not the complete legal health record.[facility]
--- OUTSIDE RECORDS SUMMARY | 2025-08-02 12:09 | XMS_ITS | Data Portability ---
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) MDM HIGH MUST MEET 2 OUT OF [...] Lab CMP, serum or plasma 2024 025 [facility], [address] [place] [address], [address], 5 15:10:33 lipid panel, blood 2024 025 [facility], [address] [place] [address], [address], 5 15:10:33 CBC w/ auto diff 2024 025 [facility], [address] [place] [address], [address], 5 15:10:33 PSA, serum or plasma 2024 025 [facility], [address] [place] [address], [address], 5 15:10:33 PSA, serum or plasma 2023 024 [facility], [address] [place] [address], [address], 4 11:45:28 lipid panel, serum 2023 024 [facility], [address] [place] [address], [address], 4 11:45:28 CMP, serum or plasma 2023 024 [facility], [address] [place] [address], [address], 4 11:45:27 CBC w/ auto diff 2023 024 [facility], [address] [place] [address], [place], [address], 4 11:45:29 hemoglobin A1c, QN, blood 2023 024 [facility], [address] [place] [address], [place], [address], 4 11:45:28 culture, wound 2023 024 [facility], [address] [place] [address], [place], [address], 4 10:45:04 PSA, serum or plasma 2021 022 [facility], [place], [address], 2 13:50:23 CMP, serum or plasma 2021 022 [facility], [place], [address], 2 13:49:31 lipid panel, serum 2021 022 [facility], [place], [address], 2 14:05:12 Referral general surgeon referral 2024 025 raymundo Amor MD, [address] [place] [address] [place], [address], 5 08:44:39 Procedures None recorded. Surgeries None recorded. Imaging XR, lumbosacra l spine, 2 or 3 view 2019 020 [facility], [address] [place] [address], [place], [address], 0 09:16:47 Medication Orders doxycyclin e hyclate 100 mg capsule 2024 025 [facility], [address] [place] [address], [address], 5 15:05:14 tamsulosin 0.4 mg capsule [address] [facility], [address] [place] [address], [address], 5 15:08:54 Bactrim DS 800 mg-160 mg tablet 2023 024 [facility], [address] [place] [address], [address], 4 14:59:30 gabapentin 300 mg capsule [address] [facility], [address] [place] [address], [address], 0 10:17:49 naproxen 500 mg tablet [address] [facility], [address] [place] [address], [address], 0 10:17:54 Patient TargetsNo targets recorded. Patient Instructions Encounter Date Encounter Id Patient Instructions Last Modified By Organization Details Last Modified Time 10/27/2021 [id number] transient ischemic attack: care instructions Not available 10/27/2021 13:59:40 01/29/2025 [id number] inguinal hernia: care instructions Not available 01/29/2025 [...] 3 view No observ ation [email or web address] [address] [place], [address], 01/05/2020 11:42:43 Result Notes None recorded. Problems Name Problem SNOMED Code Status Onset Date Resolution Date Notes Provider Name and Address Organization Details Recorded Time Transient cerebral ischemia 965367094 Active 2018 Kenneth Blanton DO [address] [place] [address], [address], [facility] Internal [facility] 9 09:34:12 Prostate specific antigen outside reference range 287817337 Active 2018 Kenneth Blanton DO [address] [place] [address], [address], [facility] 9 09:34:27 Celluliti s of lower leg 413855851 Active 2023 DUSTIN CHÁVEZ [address] [place] [address], [address], [facility] 4 14:57:00 Hyperlipi demia 90199731 Active 2023 DUSTIN CHÁVEZ [address] [place] [address], [address], [facility] 4 14:58:20 Ulcer of lower extremity 29096452 Active 2023 DUSITN CHÁVEZ [address] [place] [address], [address], [facility] 4 14:58:48 Ulcer of lower extremity 79306692 Active 2023 DUSTIN CHÁVEZ [address] [place] [address], [address], [facility] 4 14:59:27 Macrocyto sis 320127588 Active 2023 DUSTIN CHÁVEZ [address] [place] [address], [address], [facility] 4 16:30:38 Thrombocy tosis 8883808 Active 2023 DUSTIN CHÁVEZ [address] [place] [address], [address], [facility] 4 16:31:14 Drug therapy finding 953768465 Active 2024 Kenneth Blanton, [address], [address], [facility] 5 14:58:16 Right inguinal hernia 316005600 Active 2024 Kenneth Blanton [address], [address], [facility] 5 15:02:49 Nocturia due to benign prostatic hypertrop hy 024769228721 1 Active 2024 Kenneth Blanton [address], [address], [facility] 5 15:08:11 Chronic constipat ion 360468833 Active 2024 Kenneth Blanton [address], [address], [facility] 5 15:09:08 Problem Notes None recorded. Procedures Surgical History Date Name Laterality Status Provider Name and Address Organization Details Recorded Time 4 WOUND CARE completed DUSTIN CHÁVEZ [address] [place] [address], [address], [facility] 04/21/2024 15:04:23 Imaging Results None recorded. [...] n hives Not available Not available 10/30/2024 [id number] 8003 SNOMED Lazaro saavedra [facility] 5 11:55:15 8700 Bactrim medicatio n hives Not available Not available 10/30/2024 29743 9 RxNorm Lazaro saavedra [facility] 5 11:55:26 8953 atorvasta tin medicatio n Not available Not available unabletoasse 01/29/2025 32438 RxNorm edior tiki Cooper JesusBrent Blanton, [address] [place], [address], [facility] 5 14:59:44 Medications Name Sig [...] Updated DateTime 0 177.17 cm 22.7 kg/m2 83977 g 84 /min 99 % 99 % 130/74 mm[Hg] DUSTIN CHÁVEZ [address] [place], [address], [facility] 0 10:43:49 Date Recorded Body height Body mass index (BMI) Body weight Heart rate Oxygen saturation Oxygen saturation in Arterial blood by Pulse oximetry Systolic And Diastolic Provider Name and Address Organization Details Last Updated DateTime 5 177.8 cm 22.5 kg/m2 06691 g 80 /min 98 % 98 % 140/80 mm[Hg] Neisha Cardonamond [facility] 5 14:40:30 Date Recorded Body height Body mass index (BMI) Body weight Heart rate Oxygen saturation Oxygen saturation in Arterial blood by Pulse oximetry Systolic And Diastolic Provider Name and Address Organization Details Last Updated DateTime 4 177.8 cm 22.5 kg/m2 36886 g 66 /min 98 % 98 % 120/80 mm[Hg] Lazaro Nikhil [facility] 4 14:42:01 Social History Question Answer Notes LastModified by Organizat ion Details LastModified Time Tobacco Smoking Status [facility] 11:39:14 What Was The Date Of Your Most Recent Tobacco Screening? 01/29/2025 [email or web address] Information not available 01/29/2025 Sex: Unknown Functional Status None recorded. Mental Status None recorded. Family History Nothing Reported. Medical History No medical history recorded. 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 artery stenosis bilat and is now manifestin g symptoms with a left visual field cut ct and mri will be forwarded in ER report Kenneth Blanton [facility] [address] [facility], [place] [address] 02/17/2019 13:19:52 02/17/2019 14:46:26 Benign prostatic hyperplasia 420472898 N40.1 [id number] Kenneth Blanton [facility] [address] [facility],[place] [address] 03/17/2019 09:06:38 03/17/2019 11:21:10 Transient cerebral ischemia 875646057 G45.9 will cont with asa at this time neuro reportedly stated no need for procedure await full report cont statin but neuro lowered the dose will call pt with approp dose when we receive the actual consult report Prostate s pecific antigen outside reference range 270283883 R97.8 will be seeing urology in the next week or so psa is still elevated at 9.8 will send all labto urol today [id number] Kenneth Blanton [facility] [address] [facility],[place] [address] 05/08/2019 13:59:13 05/08/2019 16:08:04 Prostate specific antigen above reference range 279351787 R97.20 will try to order an mri and use this as pt is extremely reluctant to get a bx [id number] Kenneth Blanton [facility] [address] [facility], [place] [address] 07/03/2019 13:51:50 07/03/2019 16:29:18 Prostate specific antigen outside reference range 547709593 R97.8 will refer urology for a new opinion will send all lab to urol today Left inguinal hernia 236 634493 K40.90 will address after prostate stuff done [id number] Kenneth Blanton [facility] [address] [facility],[place] [address] 12/29/2019 10:36:34 12/29/2019 14:45:28 Right side sciatica 2501484069 83380 M54.31 the pt had a prior hx of sciatica due to chronic low back pain will get imaging done Meralgia p aresthetica of right leg 5838833533 21262 G57.11 constant numbness for the past day with right upper thigh will treat and image [id number] Kenneth Blanton [facility] [address] [facility] [address],[place] [address] 10/02/2020 09:46:47 10/02/2020 10:48:58 Transient cerebral ischemia 863994955 G45.9 will cont with asa at this time neuro reportedly stated no need for procedure await full report cont statin but vascular lowered the dose will call pt with approp dose when we receive the actual consult report Prostate s pecific antigen outside reference range 046716716 R97.8 psa is higher but remains stable at 9.2 was 10.6 followe d by urology [id number] Kenneth Blanton [facility] [address] [facility], [place] [address] 10/27/2021 08:17:16 10/28/2021 15:28:34 Transient cerebral ischemia 081337931 G45.9 will cont with asa at this time neuro reportedly stated no need for procedure await full report cont statin but vascular lowered the dose will call pt with approp dose when we receive the actual consult report Prostate s pecific antigen outside reference range 276221956 R97.8 psa is higher but remains stable at 9.2 was 10.6 followe d by urology [id number] Kenneth Blanton [facility] [address] [facility], [place] [address] 04/21/2024 14:28:14 04/21/2024 16:32:33 Depression screening 443468687 Z13.31 negative Cellulitis of lower leg 379630916 L03.116 start on bactrim for the next 7 days Hyperlipidemia 23457280 E78.5 set up with repeat blood work Prostate s pecific antigen outside reference range 255469185 R97.8 needs recheck Ulcer of l ower extremity 28580377 L97.929 no specific cause for the ulcer, will check a1c r/o poorly controlled new onset diabetes [id number] Kenneth Blanton [facility] [address] [facility], [place] [address] 01/29/2025 14:31:24 01/29/2025 15:07:13 Transient cerebral ischemia 034461267 G45.9 has been stable will cont with asa at this time neuro reportedly stated no need for procedure await full report cont statin but vascular lowered the dose will call pt with approp dose when we receive the actual consult report Hyperlipidemia 76847645 E78.5 now having signif effects from atorvastat including memory Depression screening 171 582356 Z13.31 neg Drug therapy finding 309 354551 T88.7XXA 2631392 stop the atorvastat in will see how he does Right inguinal hernia 23 6658358 K40.90 [id number] will refer to surg Infection of tick bite 902570685 W57.XXXA 4641410 Nocturia d ue to benign prostatic hypertrophy 6267262530 101 N40.1 R35.1 1574858 Chronic constipation 236 671271 K59.09 335945 long discussion will have him take psyillium [...] [place] Member ID Guarantor Name 02/21/2025 1 [facility] [id number] Morgan Gallegos [id number] Morgan Gallegos 01/29/2025 [facility] (MEDICARE REPLACEMENT/A DVANTAGE - PPO) [id number] Morgan Gallegos [id number] Morgan Gallegos Notes Date Note Type Note Provider Name and Address Organization Details Recorded Time 12/29/19 20 text/htm l ROS as noted in the HPI c/o right upper thigh numbness started yesterday [...] no fatigue, no cough DUSTIN CHÁVEZ [address] [place], [address], [facility] 12/29/2019 11:24:48 10/02/20 20 text/htm l ROS as noted in the HPI patient is evaluated via tele/video assessment per patient consent during current pandemic states has been feeling well some tingling from his back states no cp no sob no other episodes of neuro sx neurologist states 9 mo still taking the his usual meds Kenneth Blanton DO [address] [place], [address], [facility] 10/02/2020 10:26:31 10/27/19 22 text/htm l ROS as noted in the HPI patient is evaluated via tele/video assessment per patient consentduring current pandemichere for rechk states that he is doing ok atorvastatin is not bothering him but we will Kenneth Blanton DO [address] [place], [address], [facility] 10/27/2021 14:02:48 04/21/20 24 text/htm l ROS as noted in the HPI c/o ulcer patient noticed a spot on his leg, started putting abx ointment on it but it started to progress, about a stage 1 ulcer of the lower left extermitysurrounding redness and warm will start on abx and send out culture as well needs repeat bw for the year otherwise no other questions today DUSTIN CHÁVEZ [address] [place], [address], [facility] 04/21/2024 15:05:27 01/30/20 25 text/htm l Care Management - HyperlipidemiaReported by PatientHPIFor control, patient reportsusually well controlled,improving, andat goal. For complications, patient reportsno coronary artery disease,no heart attack,no cardiovascular disease,no pancreatitis, andno stroke.ROS as noted in the HPI here for rechk will be needing a hernia operation but wants to wait until fall after golfalso wants off the atorvastat said he is losing his memory and having a lot of aches etcalso got a tick bite last week and is now swollen and redon lower back Kenneth Blanton DO [address] [place], [address], [facility] 01/29/2025 15:12:06
--- OUTSIDE RECORDS SUMMARY | 2025-08-02 12:09 | XMS_ITS | Clinical Summary ---
Author Organization [employer] Address [address] [facility] [address] [place] [address] Care Team Providers Care Winch Stripper Name Role Phone Unavailable Primary Care Provider [...] patient's age to complete this topic Insurance [facility] MEDICARE REPLACEMENT
== END 2025-08-02 10:46 | disposition home or self-care (01) ==
LOC: HO.HGS 10:05
PROVIDERS: PCP Nurse Practitioner Family; Visit Provider Physician Assistant Surgical
DX: Z98.890 Other specified postprocedural states (principal); Z87.19 Personal history of other diseases of the digestive system
CPT/HCPCS: 99024

== ENCOUNTER → 2025-08-02 10:05 | Outpatient (BNVA) | payer MEDICARE, SELFPAY | PROVIDERS: PCP Nurse Practitioner Family; Visit Provider Physician Assistant Surgical | DX: Z48.815 Encounter for surgical aftercare following surgery on the digestive system (principal); Z98.890 Other specified postprocedural states; Z87.19 Personal history of other diseases of the digestive system | CPT/HCPCS: 99212 ==